=== PATIENT | female | born 1945 | race Caucasian/White ===

== ENCOUNTER 2017-09-18 10:01 | Outpatient (CLI) | payer MEDICARE, BC ==
[2017-09-18 15:10] LABS: #Eosinphils 0.2 thou/uL (0.0-0.7); #Lymphocytes 1.8 thou/uL (1.20-3.40); #Monocytes 0.6 thou/uL (0.11-0.59); #Neutrophils 4.5 thou/uL (1.40-6.50); %Basophils 0.6 % (0.0-1.0); %Eosinophils 2.6 % (0.0-10.0); %Lymphocytes 25.4 % (21.0-51.0); %Monocytes 7.9 % (0.0-10.0); %Neutrophils 63.5 % (42.0-75.0); Hemoglobin 12.7 g/dL (12.0-16.0); Mean Corpuscular HGB CONC 31.1 g/dL (32.0-36.0); Mean Corpuscular Hemoglobin 26.1 pg (27.0-31.0); Mean Corpuscular Volume 83.7 fl (81.0-99.0); Mean Platelet Volume 7.5 fL (7.4-10.4); Platelet Count 321 thou/uL (130-400); RBC Distribution Width 14.3 % (11.5-14.5); Red Blood Cell (RBC) Count 4.86 mill/uL (4.20-5.40); White Blood Cell (WBC) Count 7.2 thou/uL (4.8-10.8)
[2017-09-18 15:14] LABS: Prothrombin Time 12.9 SEC (12.0-14.7)
[2017-09-18 15:19] LABS: Bilirubin Negative (Negative); Blood, Urine Negative (Negative); Clarity CLEAR (Clear); Glucose, Urine (Dipstick) Negative (Negative); Leukocyte Negative (Negative); Nitrite Negative (Negative); Protein, Urine (Dipstick) Negative (Neg-Trace); Specific Gravity, Urine 1.014 (1.002-1.036); Urobilinogen 0.2 mg/dL (0.2-1.0); pH, Urine 7.5 (5.0-9.0)
[2017-09-18 15:25] LABS: Bacteria/HPF None Seen HPF (None Seen); Hyaline Casts/LPF 0-3 HYALINE CAST LPF (0-3 Hyaline); Pathc Cast-AUWi Flag 0.13 (0-2.49); RBC/HPF 0-3 HPF (0-3); Squamous Epithelial None Seen HPF (0-3); WBC/HPF None Seen HPF (0-3)
[2017-09-18 15:32] LABS: Anion Gap 14 mmol/L (10-20); BUN (Urea Nitrogen) 12 mg/dL (9.8-20.1); Calc. Creatinine Clearance 0 mL/min (70-130); Carbon Dioxide 31 mmol/L (23-31); Chloride 98 mmol/L (98-107); Estimated GFR-MDRD Greater than 90; Glucose 95 mg/dL (83-110); Potassium 4.1 mmol/L (3.5-5.1); Sodium 139 mmol/L (136-145)
--- NOTE | 2017-09-27 19:29 | EKG ---
Test Reason : Blood Pressure : / mmHG Vent. Rate : 080 BPM Atrial Rate : 080 BPM P-R Int : 168 ms QRS Dur : 102 ms QT Int : 394 ms P-R-T Axes : 063 039 077 degrees QTc Int : 454 ms Sinus rhythm with occasional Premature ventricular complexes Otherwise normal ECG When compared with ECG of 10-JUL-2015 18:57, Premature ventricular complexes are now Present Criteria for Inferior infarct are no longer Present Confirmed by GENE BOBO (2) on 09/27/2017 7:28:51 PM Referred By: IERO Confirmed By:GENE BOBO
== END 2017-09-18 10:02 | disposition home or self-care (01) ==
LOC: LABBT 10:01
PROVIDERS: ATTEND Orthopaedic Surgery
DX: Z01.818 Encounter for other preprocedural examination (principal); M17.12 Unilateral primary osteoarthritis, left knee
CPT/HCPCS: 80048; 81001; 85025; 85610; 86850; 86900; 86901; 87081; 93005; 93010

== ENCOUNTER 2017-09-24 06:53 | Inpatient (IN) | payer MEDICARE, BC ==
[2017-09-18 12:15] VITALS: BMI 30.6
[2017-09-24] MEDS ORDERED: Midazolam HCl 2 mg/2 ml Vial ONE (07:35)
[2017-09-24] MEDS ORDERED: Ropivacaine 0.2% HCl/PF 20 ML ONE (07:35)
[2017-09-24] MEDS ORDERED: Fentanyl 100 MCG/2 ML VIAL ONE ×4 (07:35→12:57)
[2017-09-24] MEDS ORDERED: Clindamycin/D5W 600 mg/50 ml Premix Bag ONE (07:36)
[2017-09-24] MEDS ORDERED: Tranexamic Acid 1,000 MG/100 ML BAG ONE ×2 (07:36→11:35)
[2017-09-24] MEDS ORDERED: Vancomycin HCl 1.5 GM in Sodium Chloride 0.9% 250 ML 300 ML IVPB SCH ×2 (07:45→20:00)
[2017-09-24] MEDS ORDERED: Zolpidem Tartrate 5 MG TAB PO PRN ×2 (08:41→09:57)
[2017-09-24] MEDS ORDERED: Ropivacaine HCl/PF 250 ML in Premix Bag 1 BAG NERVE BLCK SCH (08:41)
[2017-09-24] MEDS ORDERED: traMADol HCl 50 MG TAB PO PRN ×2 (08:41)
[2017-09-24] MEDS ORDERED: Ondansetron HCl/PF 4 MG/2 ML Vial IVP PRN ×3 (08:41→11:45)
[2017-09-24] MEDS ORDERED: HYDROcodone/Acetaminophen 5/325 mg Tablet PO PRN (08:41)
[2017-09-24] MEDS ORDERED: Promethazine HCl 25 MG/ML VIAL IM PRN ×3 (08:41→11:45)
[2017-09-24] MEDS ORDERED: Bupivacaine PF 0.5% 30 ML VIAL ONE (09:23)
[2017-09-24] MEDS ORDERED: Acetaminophen 325 MG TAB PO PRN (09:57)
[2017-09-24] MEDS ORDERED: diphenhydrAMINE 25 MG CAP PO PRN (09:57)
[2017-09-24] MEDS ORDERED: ACETAMINOPHEN WITH CODEINE PO PRN (09:59)
[2017-09-24] MEDS ORDERED: Azelastine 137 MCG/Spray 30 ML NS PRN (09:59)
[2017-09-24] MEDS ORDERED: Acetaminophen/Codeine 30-300mg Tablet PO PRN (09:59)
[2017-09-24] MEDS ORDERED: PROVENTIL INHALER 6.7 G (200 INHALATIONS) INH PRN (09:59)
[2017-09-24] MEDS ORDERED: Ondansetron ODT 8 MG TAB PO PRN (09:59)
[2017-09-24] MEDS ORDERED: Tranexamic Acid 1,000 MG in Sodium Chloride 0.9% 100 ML IVPB SCH (10:15)
--- NOTE | 2017-09-24 11:37 | OP ---
DATE OF PROCEDURE: 09/24/2017 PREOPERATIVE DIAGNOSIS: Left knee osteoarthritis. POSTOPERATIVE DIAGNOSIS: Left knee osteoarthritis. PROCEDURE PERFORMED: Left total knee replacement using [employer] pinless navigation. SURGEON: Basilio Leonard M.D. CROSSCUTTER ROLLED GLASS: Rigo Dietrich PA-C. BLOOD LOSS: Minimal. COMPLICATIONS: None. ANESTHESIA: The patient did have a general anesthetic. She also had preoperative blocks. IMPLANTS: To the left knee was a William Triathlon total knee system. The femur was a size 4 crucia te retaining femur. The tibial baseplate was a universal size 3. We used a 3 x 9 mm CSX3 tibial preeti ring and an asymmetric 29 x 9 X3 patella. DISPOSITION: She did go to the recovery room in stable condition. INDICATIONS: This is a 72-year-old female who has had many years of pain from left knee osteoarthros is and at this time she wants to have it her left knee replaced. PROCEDURE IN DETAIL: After all appropriate consent forms were explained and signed, the patient was t aken back to the Operating Room and at this time was given general anesthetic. Once the level of anes thesia was appropriate, a well-padded tourniquet was placed on the left leg and the leg was then prep ped and draped in standard surgical fashion. The limb was exsanguinated and tourniquet taken up to 30 0 mmHg. Midline incision was made with a 10 blade down through the skin and subcutaneous tissue. Bovi e electrocautery was used to coagulate any brisk venous bleeding. A new blade was used to make a medi al parapatellar arthrotomy. Small subperiosteal release was performed medially and excess fat pad was removed. The knee was flexed up to gain access to the femur. The femur was navigated and distal femo ral resection was made. Epicondylar access was used to align our sizing jig and this was pinned in pl so. We sized our femur to be a size 4, 4:1 cutting block was applied and pinned. Anterior and armoured corps officer ior chamfer cuts were then made. We navigated out our proximal tibia and made our proximal tibial res ection. Spreaders were used to remove any posterior osteophytes off the back of the femur as well as remaining meniscal tissue. A long alignment alina was then used to achieve correct rotation of our tibi al baseplate and a size 3 was chosen. This was pinned in place. We trialed the polyethylene and a 3 x 9 mm CSX3 polyethylene gave us full extension and good stability throughout range of motion. Two tow el clips and a saw were used to cut our patella. Three lug nuts were drilled and 29 x 9 X3 patella wa s trialed which sat nicely in the trochlear groove. We then drilled our femur and punched our tibia. All components were removed. The knee was thoroughly irrigated and dried. Cement was mixed into the c ement gun on the back table. Components were then placed. The knee was held out in full extension unt il the cement had dried. All excess bone cement was removed. Multiple #2 Vicryl stitches as well as a Quill was used to close our extensor mechanism. 0 Quill followed by a running Monoderm was then use d to close the skin. Surgicel glue was then used on the skin. Once this had dried, soft tissue dressi ng was applied to the limb, tourniquet was let down, and the toes pinked up nicely. The patient was then awakened and taken to the Recovery Room in stable condition. All counts were correct at the end of the case. The patient did receive preoperative IV antibiotics. The patient was injected with Expa rel for postoperative pain relief.
[2017-09-24] MEDS ORDERED: Promethazine HCl 25 MG/ML VIAL SLOW IVP PRN (11:45)
[2017-09-24] MEDS ORDERED: HYDROmorphone 2 MG/ML VIAL SLOW IVP PRN (11:45)
[2017-09-24] MEDS ORDERED: Sodium Chloride 0.9% 10 ML ONE (11:49)
[2017-09-24] MEDS ORDERED: Clindamycin/D5W 900 MG in Premix Bag 1 BAG IVPB SCH (14:00)
[2017-09-24] MEDS: Ipratropium Bromide 2.5 ml Neb NEB SCH ×2 (14:27→19:56)
[2017-09-24] MEDS: Sodium Chloride 0.9% 1,000 ML IV SCH ×2 (14:31→20:28)
[2017-09-24] MEDS: Fentanyl 100 MCG/2 ML VIAL IV PRN (15:20)
[2017-09-24] MEDS: Clindamycin/D5W 900 MG in Premix Bag 1 BAG IVPB SCH ×2 (15:21→21:23)
[2017-09-24] MEDS ORDERED: Ropivacaine 0.5% HCl/PF (150 MG/30 ML VIAL) ONE (16:40)
[2017-09-24] MEDS ORDERED: Propofol 200 MG/20 ML VIAL ONE (17:11)
[2017-09-24] MEDS ORDERED: ePHEDrine/0.9% NaCl/PF SYRINGE 50 mg/10 ml ONE (17:11)
[2017-09-24] MEDS ORDERED: Ondansetron HCl/PF 4 MG/2 ML Vial ONE (17:11)
[2017-09-24] MEDS ORDERED: Dexamethasone 20 MG/5 ML VIAL ONE (17:11)
[2017-09-24] MEDS ORDERED: Lidocaine 1% PF 5 ML VIAL ONE (17:11)
[2017-09-24] MEDS ORDERED: Mometasone/Formoterol 120 PUFF INHALER INH PRN (18:30)
[2017-09-24] MEDS: HYDROcodone/Acetaminophen 5/325 mg Tablet PO PRN ×2 (19:19→23:35)
[2017-09-24] MEDS ORDERED: Non-Formulary Item 1 EACH (Dexlansoprazole [Dexilant] 60 MG) PO SCH (21:00)
[2017-09-24] MEDS ORDERED: TIOTROPIUM BROMIDE INH SCH (21:00)
[2017-09-24] MEDS ORDERED: Docusate 100 MG CAP PO PRN (21:00)
[2017-09-24] MEDS: Ketorolac Tromethamine 30 MG/ML VIAL IVP PRN (21:19)
[2017-09-24] MEDS: Ferrous Gluconate 324 MG TAB PO SCH (21:31)
[2017-09-24] MEDS: Rosuvastatin 5 MG TAB PO SCH (21:31)
[2017-09-24] MEDS: Senokot S 8.6-50 MG TAB PO SCH (21:31)
[2017-09-24] MEDS: Terazosin HCl 5 MG CAP PO SCH (21:32)
[2017-09-24] MEDS: busPIRone HCl 10 MG TAB PO SCH (21:32)
[2017-09-24] MEDS: cycloSPORINE 0.05% Ophthalmic Droperette EA EYE SCH (21:33)
[2017-09-24] MEDS: Fluticasone Propionate Nasal Spray 16 gm Bottle NASAL SCH (21:33)
[2017-09-24] MEDS: Aspirin 325 MG TAB PO SCH (21:34)
[2017-09-25] MEDS: Ipratropium Bromide 2.5 ml Neb NEB SCH ×4 (00:42→18:55)
[2017-09-25] MEDS: Sodium Chloride 0.9% 1,000 ML IV SCH (05:02)
--- NOTE | 2017-09-25 06:13 | CON ---
DATE OF CONSULTATION: 09/24/2017 CHIEF COMPLAINT: Left total knee replacement. HISTORY OF PRESENT ILLNESS: The patient is a 72-year-old female with longstanding arthritis of the l eft knee that is finally being replaced by Dr. Leonard. We are consulted to help manage her multiple me dical problems of which there are many. Postop, she seems to be doing quite well, has complained of pain despite the fact she is sleeping. She is alert, responsive, and in no acute distress. PAST MEDICAL HISTORY: Significant for hemolytic angioedema, degenerative joint disease, hypertension , hyperlipidemia blepharitis, hiatal hernia, GERD, asthma, dyslipidemia, dry eyes, chronic pain. PAST SURGICAL HISTORY: Includes prior knee replacements, bilateral cataract surgery, spinal surgery, tonsillectomy, hysterectomy. ALLERGIES: She is allergic to KEON INHIBITORS, PENICILLIN, ROCEPHIN. MEDICATIONS ON ADMISSION: Amlodipine 5 mg a day, Zyrtec 5 mg daily, hydrocodone 5/325 daily, BuSpar 30 mg b.i.d., Celebrex 200 mg daily, Restasis 1 drop each eye b.i.d., Proventil HFA 2 puffs q.4 hours p.r.n. dyspnea, hydrochlorothiazide 50 mg q.a.m., Atrovent 2 puffs q.i.d., danazol 200 mg p.r.n. exa cerbation of HAE, Protonix 40 mg daily, Crestor 10 mg at bedtime, Hytrin 10 mg at bedtime. REVIEW OF SYSTEMS: HEENT: No headaches, no blurred vision. No congestion or drainage at this time. Chest: With good breath sounds. Denies shortness of breath currently, dyspnea or wheezing. Cardi ovascular: Denies chest pain or palpitations. Abdomen: Denies nausea, vomiting, diarrhea. Genitou rinary: Denies blood in urine or stool or dysuria. Musculoskeletal: Pain in the left knee, had a r ecent operation, otherwise other extremities are adequate at this time without swelling, erythema or heat intolerance. Skin: Without acute rashes or lesions. Neurologic: No trouble with mentation, h eadache or trouble thoughts. PHYSICAL EXAMINATION: VITAL SIGNS: On admission, blood pressure 143/84, pulse 90, respirations 18, temperature 98.2. GENERAL: This is an elderly female, alert, oriented, and cooperative. HEENT: Normocephalic and atraumatic. Pupils equal, round, and reactive to light. Extraocular muscl es are intact. TMs, nares, pharynx are clear. NECK: Supple, trachea midline, no mass, no bruits. CHEST: Clear to auscultation at the time of evaluation. BREAST: Deferred. BACK: Without lesions, negative CVAT. HEART: Regular rate and rhythm without murmur. ABDOMEN: Soft, nontender, without organomegaly. GENITOURINARY: Deferred. EXTREMITIES: Left lower extremity wrapped with clean KEON wrap and dressings with cold packs in place at the knee. Other extremities without clubbing, cyanosis, or edema. Normal range of motion presen t. SKIN: Without acute rashes or lesions. NEUROLOGIC: Cranial nerves are intact. Mental status is intact. Sensory exam is intact. Unable to test gait and cerebellar function at this time. LABORATORY DATA: No labs are pending at this time. ASSESSMENT: 1. Degenerative joint disease, left knee, status post left total knee replacement per Dr. Leonard. 2. Hemolytic angioedema, stable. 3. Asthma. 4. Hypertension, all stable. PLAN: We will monitor patient's medical course while she goes to the motions of the [facility] [place] and will probably need inpatient rehabilitation due the fact that she lives alone would not be able to care for herself all by herself, not having any other relatives to help her. We will follow her d aily with you. Thank you for the consultation.
[2017-09-25] MEDS: HYDROcodone/Acetaminophen 5/325 mg Tablet PO PRN ×3 (06:31→20:46)
[2017-09-25 06:58] LABS: Hemoglobin 9.8 g/dL (12.0-16.0); Mean Corpuscular HGB CONC 30.8 g/dL (32.0-36.0); Mean Corpuscular Hemoglobin 25.8 pg (27.0-31.0); Mean Corpuscular Volume 83.9 fl (81.0-99.0); Mean Platelet Volume 7.5 fL (7.4-10.4); Platelet Count 253 thou/uL (130-400); RBC Distribution Width 14.3 % (11.5-14.5); Red Blood Cell (RBC) Count 3.79 mill/uL (4.20-5.40); White Blood Cell (WBC) Count 10.5 thou/uL (4.8-10.8)
--- NOTE | 2017-09-25 08:31 | PRG ---
DATE OF SERVICE: 09/25/2017 SUBJECTIVE: The patient had a good night. She is sitting in the chair eating breakfast. Her pain i s under control. She says she had a little bit of wheezing in her lungs last night. PHYSICAL EXAMINATION: GENERAL: She is awake, alert, and oriented. VITAL SIGNS: Blood pressure 129/70, pulse 80, respiration rate 18. She is afebrile. NECK: Supple with no increased JVP or carotid bruit. Carotid had good upstroke with no thyromegaly. COR: Regular rate and rhythm. CHEST: Symmetrical. Clear to auscultation and percussion. ABDOMEN: Soft, nontender with normoactive bowel sounds. No bruit or organomegaly. EXTREMITIES: No edema. She had the left knee wrapped with ice on it. LABORATORY DATA: Today showed H&H 9.8 and 31.8, her platelet count is 253. ASSESSMENT: 1. Status post left knee replacement. 2. General anxiety disorder. 3. History of asthma. 4. Hypertension. PLAN: The patient will continue the same current medication regime. The patient asked whether she w anted to rehab as she lives alone, so once Ortho says it is okay, I would definitely look at sending her to rehab. The patient verbalized understanding and all questions answered to her satisfaction.
[2017-09-25] MEDS: Multivitamin W/ Minerals 1 TAB PO SCH (08:41)
[2017-09-25] MEDS: Senokot S 8.6-50 MG TAB PO SCH ×2 (08:41→20:45)
[2017-09-25] MEDS: Amlodipine 5 MG TAB PO SCH (08:41)
[2017-09-25] MEDS: Potassium Chloride 10 MEQ TAB PO SCH (08:42)
[2017-09-25] MEDS: Ferrous Gluconate 324 MG TAB PO SCH ×2 (08:42→20:45)
[2017-09-25] MEDS: Hydrochlorothiazide 25 MG TAB PO SCH (08:42)
[2017-09-25] MEDS: Venlafaxine HCl XR 150 MG CAP PO SCH (08:42)
[2017-09-25] MEDS: Aspirin 325 MG TAB PO SCH ×2 (08:42→20:45)
[2017-09-25] MEDS: busPIRone HCl 10 MG TAB PO SCH ×2 (08:43→20:46)
[2017-09-25] MEDS: CeleCOXIB 100 MG CAP PO SCH (08:44)
[2017-09-25] MEDS: Fluticasone Propionate Nasal Spray 16 gm Bottle NASAL SCH ×2 (08:44→20:44)
[2017-09-25] MEDS: Ketorolac Tromethamine 30 MG/ML VIAL IVP PRN ×3 (08:44→22:55)
[2017-09-25] MEDS: Multivit, Therapeutic 1 TAB PO SCH (10:44)
[2017-09-25] MEDS: cycloSPORINE 0.05% Ophthalmic Droperette EA EYE SCH ×2 (12:11→20:44)
[2017-09-25] MEDS: Fentanyl 100 MCG/2 ML VIAL IV PRN (13:54)
[2017-09-25] MEDS: Terazosin HCl 5 MG CAP PO SCH (20:45)
[2017-09-25] MEDS: Rosuvastatin 5 MG TAB PO SCH (20:51)
[2017-09-26] MEDS: Ipratropium Bromide 2.5 ml Neb NEB SCH ×4 (00:30→19:28)
[2017-09-26] MEDS: Sodium Chloride 0.9% 1,000 ML IV SCH ×4 (03:00→20:54)
[2017-09-26 05:42] LABS: Hemoglobin 10.2 g/dL (12.0-16.0); Mean Corpuscular Volume 83.8 fl (81.0-99.0); Mean Platelet Volume 7.6 fL (7.4-10.4); Platelet Count 258 thou/uL (130-400); RBC Distribution Width 14.4 % (11.5-14.5); Red Blood Cell (RBC) Count 3.93 mill/uL (4.20-5.40)
[2017-09-26] MEDS: Ketorolac Tromethamine 30 MG/ML VIAL IVP PRN ×2 (06:06→21:15)
[2017-09-26] MEDS: CeleCOXIB 100 MG CAP PO SCH (08:48)
[2017-09-26] MEDS: busPIRone HCl 10 MG TAB PO SCH ×2 (08:48→20:00)
[2017-09-26] MEDS: Aspirin 325 MG TAB PO SCH ×2 (08:48→19:59)
[2017-09-26] MEDS: Multivitamin W/ Minerals 1 TAB PO SCH (08:49)
[2017-09-26] MEDS: Hydrochlorothiazide 25 MG TAB PO SCH (08:49)
[2017-09-26] MEDS: Senokot S 8.6-50 MG TAB PO SCH ×2 (08:49→20:00)
[2017-09-26] MEDS: Ferrous Gluconate 324 MG TAB PO SCH ×2 (08:49→19:59)
[2017-09-26] MEDS: Venlafaxine HCl XR 150 MG CAP PO SCH (08:49)
[2017-09-26] MEDS: Potassium Chloride 10 MEQ TAB PO SCH (08:49)
[2017-09-26] MEDS: Amlodipine 5 MG TAB PO SCH (08:50)
[2017-09-26] MEDS: cycloSPORINE 0.05% Ophthalmic Droperette EA EYE SCH ×2 (08:51→20:01)
[2017-09-26] MEDS: HYDROcodone/Acetaminophen 5/325 mg Tablet PO PRN ×4 (09:01→23:51)
[2017-09-26] MEDS: Multivit, Therapeutic 1 TAB PO SCH (10:12)
[2017-09-26] MEDS: Fluticasone Propionate Nasal Spray 16 gm Bottle NASAL SCH ×2 (10:12→20:01)
[2017-09-26] MEDS: Rosuvastatin 5 MG TAB PO SCH (20:00)
[2017-09-26] MEDS: Terazosin HCl 5 MG CAP PO SCH (20:00)
[2017-09-27] MEDS: Ipratropium Bromide 2.5 ml Neb NEB SCH ×4 (01:07→19:56)
[2017-09-27] MEDS: Ketorolac Tromethamine 30 MG/ML VIAL IVP PRN ×2 (03:15→10:53)
[2017-09-27 05:48] LABS: Hemoglobin 9.3 g/dL (12.0-16.0); Mean Corpuscular HGB CONC 30.7 g/dL (32.0-36.0); Mean Corpuscular Hemoglobin 25.5 pg (27.0-31.0); Mean Corpuscular Volume 83.2 fl (81.0-99.0); Mean Platelet Volume 7.8 fL (7.4-10.4); Platelet Count 265 thou/uL (130-400); RBC Distribution Width 14.4 % (11.5-14.5); Red Blood Cell (RBC) Count 3.65 mill/uL (4.20-5.40); White Blood Cell (WBC) Count 7.3 thou/uL (4.8-10.8)
[2017-09-27] MEDS: Sodium Chloride 0.9% 1,000 ML IV SCH ×2 (07:34→17:12)
--- NOTE | 2017-09-27 08:05 | PRG ---
DATE OF SERVICE: 09/27/2017 SUBJECTIVE: The patient had a good night. She does have a productive cough. She is still on oxygen . Her O2 sats are 92%. She is sitting in bed, eating breakfast. She is waiting to get approved at rehabilitation. PHYSICAL EXAMINATION: GENERAL: On evaluation, she is awake, alert, and oriented. VITAL SIGNS: Blood pressure 123/77, pulse 73, respirations 18, she is afebrile. NECK: Supple with no increased JVP or carotid bruit. Carotid had good upstroke with no thyromegaly. COR: Regular rate and rhythm. CHEST: Symmetrical. Clear to auscultation and percussion in upper lobes. ABDOMEN: Soft, nontender with normoactive bowel sounds. No bruit or organomegaly. EXTREMITIES: No edema. She has the dressing on her left knee. She had palpable pedal pulses. SKIN: There is no evidence of ulceration, lesion, or rash. NEUROLOGIC: She is awake, alert, and oriented to person, place, and time. LABORATORY DATA: Her CBC showed H&H of 9.3 and 30.4. ASSESSMENT: 1. Status post left knee replacement. 2. General anxiety disorder. 3. Multiple medical problems. PLAN: The patient is waiting to get approved hopefully at [facility]. Once the patient is approved , it is okay from our standpoint to send the patient to rehab. Discharge medications are already pre pared in the chart. The patient verbalized understanding and all questions answered to satisfaction. This is JASON Manjarrez dictating for Dr. Luis Escobar.
[2017-09-27] MEDS: Venlafaxine HCl XR 150 MG CAP PO SCH (08:48)
[2017-09-27] MEDS: Aspirin 325 MG TAB PO SCH ×2 (08:48→20:23)
[2017-09-27] MEDS: CeleCOXIB 100 MG CAP PO SCH (08:48)
[2017-09-27] MEDS: busPIRone HCl 10 MG TAB PO SCH ×2 (08:48→20:23)
[2017-09-27] MEDS: Senokot S 8.6-50 MG TAB PO SCH ×2 (08:49→20:23)
[2017-09-27] MEDS: Amlodipine 5 MG TAB PO SCH (08:49)
[2017-09-27] MEDS: Ferrous Gluconate 324 MG TAB PO SCH ×2 (08:49→20:24)
[2017-09-27] MEDS: Multivitamin W/ Minerals 1 TAB PO SCH (08:49)
[2017-09-27] MEDS: HYDROcodone/Acetaminophen 5/325 mg Tablet PO PRN ×3 (08:49→22:17)
[2017-09-27] MEDS: Hydrochlorothiazide 25 MG TAB PO SCH (08:49)
[2017-09-27] MEDS: Multivit, Therapeutic 1 TAB PO SCH (08:50)
[2017-09-27] MEDS: Potassium Chloride 10 MEQ TAB PO SCH (08:50)
[2017-09-27] MEDS: Fluticasone Propionate Nasal Spray 16 gm Bottle NASAL SCH ×2 (08:51→20:24)
--- NOTE | 2017-09-27 12:14 | PRG ---
DATE OF SERVICE: 09/27/2017 SUBJECTIVE: Ms. Landrum is now postoperative day #3 from a left total knee arthroplasty. She is doin g relatively well. Placement is pending for inpatient rehabilitation versus skilled. OBJECTIVE: VITAL SIGNS: Stable, temperature 98.8, pulse 81, respiratory rate 12, blood pressure 146/83. GENERA L: She is alert and oriented to person, place, time, and situation. She is ambulating 120 feet. To lerating a regular diet, and voiding without difficulty. EXTREMITIES: Her incision is clean and closed and she is neurovascularly intact in the involved extr emity. IMPRESSION: A 72-year-old white female postop day #3, left total knee arthroplasty, doing well. PLAN: Continue current management and plan for a transfer to rehabilitation when approved.
[2017-09-27] MEDS: cycloSPORINE 0.05% Ophthalmic Droperette EA EYE SCH ×2 (13:50→20:24)
[2017-09-27] MEDS: traMADol HCl 50 MG TAB PO PRN (19:42)
[2017-09-27] MEDS: Rosuvastatin 5 MG TAB PO SCH (20:23)
[2017-09-27] MEDS: Terazosin HCl 5 MG CAP PO SCH (20:23)
[2017-09-27] MEDS ORDERED: Calcium Carbonate 500 MG ChewTAB PO PRN (22:25)
[2017-09-28] MEDS: Ipratropium Bromide 2.5 ml Neb NEB SCH ×2 (00:32→07:56)
[2017-09-28] MEDS: Sodium Chloride 0.9% 1,000 ML IV SCH (03:28)
[2017-09-28] MEDS: HYDROcodone/Acetaminophen 5/325 mg Tablet PO PRN ×2 (03:53→09:02)
[2017-09-28 04:21] LABS: Hemoglobin 9.8 g/dL (12.0-16.0); Mean Corpuscular HGB CONC 31.3 g/dL (32.0-36.0); Mean Corpuscular Hemoglobin 26.4 pg (27.0-31.0); Mean Corpuscular Volume 84.2 fl (81.0-99.0); Mean Platelet Volume 7.8 fL (7.4-10.4); Platelet Count 333 thou/uL (130-400); RBC Distribution Width 14.4 % (11.5-14.5); White Blood Cell (WBC) Count 7.2 thou/uL (4.8-10.8)
[2017-09-28] MEDS: Senokot S 8.6-50 MG TAB PO SCH (08:52)
[2017-09-28] MEDS: Aspirin 325 MG TAB PO SCH (08:53)
[2017-09-28] MEDS: Multivit, Therapeutic 1 TAB PO SCH (08:53)
[2017-09-28] MEDS: busPIRone HCl 10 MG TAB PO SCH (08:54)
[2017-09-28] MEDS: CeleCOXIB 100 MG CAP PO SCH (08:54)
[2017-09-28] MEDS: Hydrochlorothiazide 25 MG TAB PO SCH (08:54)
[2017-09-28] MEDS: Venlafaxine HCl XR 150 MG CAP PO SCH (08:54)
[2017-09-28] MEDS: Multivitamin W/ Minerals 1 TAB PO SCH (08:55)
[2017-09-28] MEDS: Amlodipine 5 MG TAB PO SCH (08:55)
[2017-09-28] MEDS: Ferrous Gluconate 324 MG TAB PO SCH (08:55)
[2017-09-28] MEDS: Potassium Chloride 10 MEQ TAB PO SCH (08:55)
[2017-09-28] MEDS: cycloSPORINE 0.05% Ophthalmic Droperette EA EYE SCH (09:03)
[2017-09-28] MEDS: Fluticasone Propionate Nasal Spray 16 gm Bottle NASAL SCH (09:04)
[2017-09-28] MEDS: traMADol HCl 50 MG TAB PO PRN (11:51)
[2017-09-28 11:57] VITALS: BP 138/88; TEMP 97.8
== END 2017-09-28 13:30 | disposition home health service (06) | DRG 470 ==
LOC: SDC 06:53 → SJJU 09:57 → EDSTATUS 13:00
PROVIDERS: ADMIT Orthopaedic Surgery; ATTEND Orthopaedic Surgery
PROC: 0SRD0J9 Replacement of Left Knee Joint with Synthetic Substitute, Cemented, Open Approach (ICD-10-PCS; principal; 2017-09-24)
PROC: 8E0YXBZ Computer Assisted Procedure of Lower Extremity (ICD-10-PCS; 2017-09-24)
PROC: 3E0T3BZ Introduction of Anesthetic Agent into Peripheral Nerves and Plexi, Percutaneous Approach (ICD-10-PCS; 2017-09-24)
PROC: 3E0T3BZ Introduction of Anesthetic Agent into Peripheral Nerves and Plexi, Percutaneous Approach (ICD-10-PCS; 2017-09-24)
DX: M17.12 Unilateral primary osteoarthritis, left knee (principal); D84.1 Defects in the complement system; G62.9 Polyneuropathy, unspecified; E78.5 Hyperlipidemia, unspecified; F41.1 Generalized anxiety disorder; J45.909 Unspecified asthma, uncomplicated; I10 Essential (primary) hypertension; Z96.651 Presence of right artificial knee joint
CPT/HCPCS: 36415; 85027; A4216; C1713; C1776; G8978-GP-CL; G8979-GP-CJ; G8987-GO-CK; G8988-GO-CI; J1100; J1885; J2001; J2250; J2405; J2704; J2795; J3010; J3370; J3490; J7050; J7644; S0020

== ENCOUNTER 2017-10-04 15:22 | Outpatient (CLI) | payer MEDICARE, BC ==
--- NOTE | 2017-10-04 16:31 | ULT ---
ULTRASOUND WITH DOPPLER DUPLEX VENOUS LOWER EXTREMITY LEFT 10/04/17 CPT: 08577 ICD-10-PCS: B54D HISTORY: Pain and edema of left lower extremity. TECHNIQUE: Color flow Doppler, spectral waveform analysis of pulsed Doppler, and ruiz-scale imaging with jyotsna dey and augmentation, were used to evaluate the left common femoral, femoral, popliteal, posterior t ibial, and superficial femoral, veins; and the proximal portions of the profunda femoral and greater saphenous, veins. FINDINGS: Appropriate compressibility and flow within the imaged deep vein system of the left lower extremity. Incidental note of left inguinal region lymph nodes. IMPRESSION: There is no evidence of DVT of the imaged left lower extremity. POS: SHERON
== END 2017-10-04 15:23 | disposition home or self-care (01) ==
LOC: ULT 15:22
PROVIDERS: ATTEND Orthopaedic Surgery
DX: M79.89 Other specified soft tissue disorders (principal); M79.662 Pain in left lower leg; Z96.652 Presence of left artificial knee joint

== ENCOUNTER 2017-11-14 13:02 | Outpatient (CLI) | payer MEDICARE, BC ==
--- NOTE | 2017-11-15 10:13 | PFT ---
PATIENT HISTORY: HEIGHT: 65 IN WEIGHT:180 SMOKER: NO HOW LONG: PACKS PER DAY PRODUCTIVE COUGH: LUNG DISEASE: PHYSICIAN INTERPRETATION FINAL REPORT: Track Surfacing Machine Operator comments: patient had good effort and cooperation PFT data: FVC 2.33 (81%), FEV1 2.01 (99%), FEV1/FVC 0.86. Total expiratory time 6.76 seconds. TLC 3.96 (81%), RV 1.46 (72%). Diffusion 31.13 (176%). The FEV1 and FVC fall within the normal limits. The ratio is also normal. The total lung capacity is at the lower limits of normal. The residual volume is mildly impaired. Diffusion capacity is elevated that this data may be inaccurate Interpret with caution. IMPRESSION: Overall, these pulmonary function studies are including spirometry and lung volumes are normal, but early restrictive process cannot be excluded. No priors for comparison. Diffusion are gas exchanges elevated, possibly as an effect of artifact. Track Surfacing Machine Operator: ENID Rodeo Performer: ENID ZEPEDA
== END 2017-11-14 13:03 | disposition home or self-care (01) ==
LOC: CP 13:02
PROVIDERS: ATTEND Internal Medicine Critical Care Medicine
DX: J84.10 Pulmonary fibrosis, unspecified (principal)
CPT/HCPCS: 94010; 94727; 94729

== ENCOUNTER 2018-01-28 09:27 | Outpatient (CLI) | payer MEDICARE, BC ==
--- NOTE | 2018-01-28 13:18 | RAD ---
DOUBLE CONTRAST ESOPHAGRAM: Date: 01/28/18 INDICATION: History of gastroesophageal reflux, hiatal hernia, and cough. TECHNIQUE: Thin barium, thick barium, and effervescent crystals utilized for double contrast esophagram. Total f luoroscopic time is 1.7 minutes. Total exposure was 262.95 mGy*cm^2. FINDINGS: No intraluminal mass or stricture is identified. The esophageal contour is normal appearing. There wa s a small hiatal hernia demonstrated when the patient was placed in the right lateral decubitus posit ion. There are tertiary contractions of the esophagus that limited propulsion of the contrast bolus in a right lateral decubitus position and to some extent in an upright position. No gastroesophageal reflux was elicited during the examination. No gross mucosal abnormality is evident within limitation s of exam. The patient had slight difficulty in holding still during the examination and motion artif act limited the image resolution. IMPRESSION: 1. Small hiatal hernia. 2. Tertiary contractions of the mid to distal esophagus can be seen with presbyesophagus or reflux e sophagitis. 3. No definite intraluminal mass or stricture is evident. POS: OTIS
== END 2018-01-28 09:28 | disposition home or self-care (01) ==
LOC: RAD 09:27
PROVIDERS: ATTEND Internal Medicine Gastroenterology
DX: K21.9 Gastro-esophageal reflux disease without esophagitis (principal); K44.9 Diaphragmatic hernia without obstruction or gangrene; K22.8 Other specified diseases of esophagus; R05 Cough
CPT/HCPCS: 74220

== ENCOUNTER 2018-03-19 14:01 | Outpatient (CLI) | payer MEDICARE, BC | END 2018-03-19 14:02 | disposition home or self-care (01) | LOC: BICMAMMO 14:01 | PROVIDERS: ATTEND Specialist | DX: Z12.31 Encounter for screening mammogram for malignant neoplasm of breast (principal); Z80.3 Family history of malignant neoplasm of breast | CPT/HCPCS: 77063; 77067 ==

== ENCOUNTER 2018-05-27 13:23 | Outpatient (CLI) | payer MEDICARE, BC | END 2018-05-27 13:24 | disposition home or self-care (01) | LOC: BICCT 13:23 | PROVIDERS: ATTEND Specialist | DX: M51.16 Intervertebral disc disorders with radiculopathy, lumbar region (principal); M47.26 Other spondylosis with radiculopathy, lumbar region; Z98.890 Other specified postprocedural states | CPT/HCPCS: 72131 ==

== ENCOUNTER 2018-10-07 13:39 | Outpatient (CLI) | payer MEDICARE, BC ==
--- NOTE | 2018-10-07 16:33 | RAD ---
FOUR VIEWS CERVICAL SPINE: HISTORY: Disk disorder with radiculopathy. FINDINGS: AP, lateral, flexion, and extension views of the cervical spine obtained. Images demonstrate disk space height loss with anterior and posterior osteophytes at C3-4, C4-5, C5-6 , and C6-7. Findings compatible with changes of spondylosis. IMPRESSION: Mid cervical changes of spondylosis involving multiple cervical levels. POS: OTIS
--- NOTE | 2018-10-07 17:33 | CT ---
NONCONTRAST CT CERVICAL SPINE: 10/07/2018 HISTORY: Radiculopathy. Neck pain for many years. Tingling and numbness down right arm. History of back sti mulator. FINDINGS: There is slight anterolisthesis of C2 on C3 with trace anterolisthesis of C4 on C5, likely related to prominent facet degenerative changes. There is straightening of the normal cervical lordotic curvat ure. Multilevel degenerative change is seen throughout the cervical spine, with narrowing of the int ervertebral disk spaces and endplate degenerative changes at multiple levels. C2-C3: There are prominent facet hypertrophic changes without significant encroachment on the neural foramina. The central spinal canal appears patent at this level. C3-C4: There is prominent right-sided facet hypertrophic changes and uncinate process hypertrophy, r esulting in moderate right-sided neural foraminal narrowing. There is mild left-sided neural foramin al narrowing. C4-C5: There is disk osteophyte complex and facet hypertrophic changes. Findings result in moderate to severe bilateral neural foraminal narrowing with mild effacement of the ventral subarachnoid spac e. C5-C6: There are prominent endplate degenerative changes and endplate sclerosis. There is disk oste ophyte complex noted. There is mild left and moderate to severe right-sided neural foraminal narrowi ng, related to bony encroachment. C6-C7: There is no significant bony encroachment on the central spinal canal or neural foramina. C7-T1: There is no significant bony encroachment on the central spinal canal or neural foramina. The prevertebral soft tissues are within normal limits. Vascular calcification is seen in the carotid arteries. The visualized medial upper lung zones are clear, aside from minimal pleural and parenchymal scarring at each lung apex. IMPRESSION: Multilevel degenerative changes seen throughout the cervical spine. There is slight anterolisthesis of C2 on C3 with trace anterolisthesis of C4 on C5, attributable to prominent facet degenerative rosa ges. There is bony encroachment on the neural foramina at several levels. POS: OTIS
== END 2018-10-07 13:40 | disposition home or self-care (01) ==
LOC: BICCT 13:39
PROVIDERS: ATTEND Specialist
DX: M50.120 Mid-cervical disc disorder, unspecified level (principal); M48.02 Spinal stenosis, cervical region; M43.12 Spondylolisthesis, cervical region; M47.22 Other spondylosis with radiculopathy, cervical region
CPT/HCPCS: 72050; 72125

== ENCOUNTER 2019-01-09 14:04 | Emergency (ER) | payer MEDICARE, BC ==
[2019-01-09 14:44] LABS: #Basophils 0.1 thou/uL (0.0-0.2); #Eosinphils 0.3 thou/uL (0.0-0.7); #Lymphocytes 1.8 thou/uL (1.20-3.40); #Monocytes 0.6 thou/uL (0.11-0.59); #Neutrophils 4.5 thou/uL (1.40-6.50); %Basophils 0.7 % (0.0-1.0); %Eosinophils 4.5 % (0.0-10.0); %Lymphocytes 24.3 % (21.0-51.0); %Monocytes 8.2 % (0.0-10.0); %Neutrophils 62.2 % (42.0-75.0); Hemoglobin 13.5 g/dL (12.0-16.0); Mean Corpuscular Hemoglobin 27.7 pg (27.0-31.0); Mean Corpuscular Volume 86.5 fL (78.0-98.0); Mean Platelet Volume 7.6 fL (7.4-10.4); Platelet Count 241 thou/uL (130-400); RBC Distribution Width 13.2 % (11.5-14.5); Red Blood Cell (RBC) Count 4.89 mill/uL (4.20-5.40); White Blood Cell (WBC) Count 7.3 thou/uL (4.8-10.8)
--- NOTE | 2019-01-09 14:44 | RAD ---
EXAM: Chest PA and lateral: HISTORY: Shortness of breath COMPARISON: 08/20/2013 FINDINGS: Heart: Within normal limits. Aorta: Ectatic and slightly prominent. Pulmonary vessels: Upper normal Costophrenic angles: Costophrenic angles are clear. Lungs: No consolidation or masses. Pneumothorax: No pneumothorax Osseous structures: No osseous abnormalities IMPRESSION: No acute cardiopulmonary process.
[2019-01-09 15:03] LABS: ALT (SGPT) 11 U/L (8-55); AST (SGOT) 22 U/L (5-34); Alkaline Phosphatase 95 U/L (40-150); Anion Gap 13 mmol/L (10-20); BUN (Urea Nitrogen) 7 mg/dL (9.8-20.1); Bilirubin, Total 0.3 mg/dL (0.2-1.2); Calc. Creatinine Clearance 0 mL/min (70-130); Calcium 9.6 mg/dL (7.8-10.44); Carbon Dioxide 30 mmol/L (23-31); Chloride 101 mmol/L (98-107); Estimated GFR-MDRD Greater than 90; Globulin 2.9 g/dL (2.4-3.5); Glucose 81 mg/dL (83-110); Potassium 4.2 mmol/L (3.5-5.1); Protein, Total 6.9 g/dL (6.0-8.3); Sodium 140 mmol/L (136-145)
[2019-01-09] MEDS ORDERED: Albuterol Sulfate 2.5 mg/3 ml Neb ONE (18:54)
[2019-01-09 19:00] LABS: Actual Bicarbonate (HCO3a) 29.8 mEq/L (22-28); Analyzer IN Cardio ER; Base Excess (BEa) 4.2 mEq/L (-2.0 to +3.0); Calcium, Ionized 1.19 mmol/L (1.12-1.30); Hemoglobin (Hb) 15.3 g/dL (12.0-16.0); Potassium - ABG Lab 3.08 mmol/L (3.70-5.30); pH, Arterial 7.41 (7.35-7.45)
[2019-01-09 19:12] LABS: O2 Tension (PaO2) 25.8 mmHg (> 70.0)
[2019-01-09 19:13] LABS: Puncture Site L WRIST
[2019-01-09] MEDS ORDERED: Dexamethasone 10 MG/ML VIAL ONE (19:22)
[2019-01-09] MEDS ORDERED: Azithromycin 500 MG VIAL ONE (19:22)
[2019-01-09] MEDS ORDERED: Magnesium 2 GM/50 ML BAG (IN WATER) ONE (19:54)
== END 2019-01-09 21:30 | disposition home or self-care (01) ==
LOC: ERS 14:04
DX: J20.9 Acute bronchitis, unspecified (principal); B37.0 Candidal stomatitis; K21.9 Gastro-esophageal reflux disease without esophagitis; J45.909 Unspecified asthma, uncomplicated; F41.9 Anxiety disorder, unspecified; Z79.899 Other long term (current) drug therapy
CPT/HCPCS: 36415; 71046; 80053; 82805; 84484; 85025; 93005; 94760; 96365; 96375; J0456; J1100; J3475; J7611; J7620

== ENCOUNTER 2019-02-07 06:50 | Day surgery (SDC) | payer MEDICARE, BC ==
[2019-02-07] MEDS ORDERED: cloNIDine 0.1 MG TAB ONE ×2 (08:03→08:35)
[2019-02-07 10:18] VITALS: BP 198/119; TEMP 98.4
--- NOTE | 2019-02-07 11:05 | CT ---
CT thoracic spine with contrast: ([facility] thoracic myelogram) DATE: 02/07/2019 HISTORY: 73-year-old female with thoracic spinal stenosis and radicular pain of thoracic region COMPARISON: 12/11/2016 FINDINGS: There has been interval insertion of dorsal column stimulator leads which enter the posterior aspect of the spinal canal at approximately T8-9, with electrodes superior edges that reaches the lower T7 level, centered to the left of midline. Multiple midline laminectomies have been performed to perform this procedure, from T7-8 to T10-11. There is streak artifact emanating from the distal electrodes, obscuring immediate surroundings, including its relationship to the spinal cord. The left side of the electrodes is in very close proximity to the dorsal surface of the spinal cord no significant anterior displacement of the spinal cord. Again noted are the multilevel degenerative disc changes of varying degrees, predominantly mild at up per thoracic spine and mid thoracic spine, and moderate at T7-8, T8-9, T9-10, and T10-11. Degenerative disc disease is severe at T12-L1. Multiple small and tiny disc protrusions encroach upon the anterior aspect of the spinal canal at tatyana ost all levels. At T7-8 there is a 5 x 5 x 10 mm left paracentral focal disc-osteophyte complex that abuts the left ventral surface of the spinal cord without displacing the spinal cord. This has n ot changed. There are nonacute bilateral nondisplaced L1 compression fractures. There are bilateral accessory rib s at L1. No compression fracture. No severe neural foraminal stenosis identified at any level. IMPRESSION: 1.) Bilateral nondisplaced, nonacute L1 pedicle fractures 2.) Interval placement of spinal cord dorsal column stimulator leads via multilevel laminectomy in lo wer to mid thoracic spine. 3) no high-grade central spinal canal stenosis. 4) thoracic spondylosis with multilevel high-grade degenerative disc disease in the lower thoracic sp ine.
--- NOTE | 2019-02-07 11:15 | CT ---
CT lumbar spine with contrast: (CT lumbar myelogram) DATE: 02/07/2019 HISTORY: 73-year-old female with intervertebral disc disorder with radiculopathy of lumbar region, postlaminec sierra syndrome, not elsewhere classified COMPARISON: 12/11/2016 FINDINGS: Counting levels from the thoracic spine CT, there are a total of 13 rib bearing vertebrae. To be cons istent with the thoracic spine CT report, the lowest level with bilateral ribs will be designated as L1 rather than T12. This makes the last lumbar-type vertebra L6. There are chronic, nonunited bilateral L1 pedicle fractures. Conus medullaris terminates at L2-3. Spi nal canal and thecal sac are generous throughout all levels. Grade 2 anterolisthesis of L6 on S1 fixated with bilateral pedicle screws at L5, L6, and S1. No evidence of hardware loosening. Wide lami nectomy defects at L5-6 and L6-S1. No evidence of chronic arachnoiditis. Degenerative disc disease: Severe at T12-L1 and L6-S1. Moderate at L3-4 and L4-5. Mild at other level s. No central spinal canal stenosis at any level. No high-grade neural foraminal stenosis at any level. No interval change. IMPRESSION: 1. 13 rib-bearing vertebrae. Last rib-bearing vertebra is designated as L1, and last lumbar-type vert ebra is designated as L6. 2. Chronic, nondisplaced and nonunited bilateral L1 pedicle fractures. 3. Laminectomy and posterior lumbar fusion with pedicle screws. 4. Grade 2 spondylolisthesis at L6-S1. 5. Lumbar spondylosis with multilevel high-grade degenerative disc disease, worst at T12-L1, followed by L6-S1. 6. No central stenosis or high-grade neural foraminal stenosis. 7. No interval change.
[2019-02-07] MEDS ORDERED: Iopamidol-M 300 61% 15 ML VIAL ONE (15:39)
--- NOTE | 2019-02-08 10:01 | RAD ---
MYELOGRAM LUMBAR AND THORACIC: Date: 02/07/19 HISTORY: 73-year-old female with thoracic spinal stenosis, radicular pain of thoracic region, intervertebral disc disorder with radiculopathy of lumbar region, and post laminectomy syndrome, not elsewhere class ified. TECHNIQUE: Signed, informed consent obtained. Hand Lens Polisher radiographs of thoracic spine and lumbar spine obtained. Pat ient placed prone on fluoroscopy table. Skin of lower back prepared and draped in usual sterile fashi on. 25 gauge needle used to apply buffered lidocaine. 22 gauge spinal needle advanced under brief, in termittent fluoroscopy, through the laminectomy defect at midline at the L4-5 level. After removal of 10 mL of clear CSF, a total of 9 mL of Isovue-M 300 was injected intrathecally. Needle was removed. Fluoroscopy table was tilted, allowing intrathecal contrast material to flow into the thoracic spine. The patient tolerated the procedure well. No complications. The patient was taken to CT. FINDINGS: Hand Lens Polisher view radiograph demonstrates dorsal column stimulator with leads at thoracic spine. Laminectomy defects and pedicle screws at lower lumbar spine and upper sacrum. Spondylolisthesis at lumbosacral junction. Post injection image demonstrates contrast material within a wide caliber lower lumbar thec al sac. IMPRESSION: 1. Successful thoracic and lumbar myelogram. See separate report of CT myelograms of the thoracic sp ine and lumbar spine. 2. Laminectomy and posterior lumbar fusion hardware at lower lumbar spine and lumbosacral junction. 3. Spondylolisthesis at lumbosacral junction. 4. Lumbar spondylosis. 5. Spinal cord stimulator at thoracic spine. POS: TPC
== END 2019-02-07 11:35 | disposition home or self-care (01) ==
LOC: RAD 06:50
PROVIDERS: ATTEND Specialist
PROC: B01B1ZZ Fluoroscopy of Spinal Cord using Low Osmolar Contrast (ICD-10-PCS; principal; 2019-02-07)
DX: M51.14 Intervertebral disc disorders with radiculopathy, thoracic region (principal); M48.04 Spinal stenosis, thoracic region; M51.16 Intervertebral disc disorders with radiculopathy, lumbar region; M47.26 Other spondylosis with radiculopathy, lumbar region; S32.010A Wedge compression fracture of first lumbar vertebra, initial encounter for closed fracture; M43.16 Spondylolisthesis, lumbar region; M96.1 Postlaminectomy syndrome, not elsewhere classified; Z88.1 Allergy status to other antibiotic agents; Z88.0 Allergy status to penicillin; Z88.8 Allergy status to other drugs, medicaments and biological substances; Z79.82 Long term (current) use of aspirin; Z79.899 Other long term (current) drug therapy
CPT/HCPCS: 62305; 72129; 72132; Q9967

== ENCOUNTER 2019-02-14 10:06 | Outpatient (CLI) | payer MEDICARE, BC ==
--- NOTE | 2019-02-14 10:29 | RAD ---
Exam: LUMBAR SPINE 3 VIEWS: HISTORY: Lumbar spondylosis. L1 fracture. COMPARISON: None FINDINGS: AP, lateral neutral, lateral flexion, and lateral extension views were obtained with the patient in w eightbearing position. Five lumbar-type vertebral bodies. Slight rightward curvature the lumbar spine. Bilateral transpedicu lar screws at L4, L5, and S1. No perihardware lucency. Generator projects over the right hemipelvis with leads in a cephalad direction. Laminectomy at L5. Posterior bone graft material from L4 through L5. Neutral position: L4-L5 has 2.5 mm of anterolisthesis and L5-S1 has 9.4 mm of anterolisthesis. Flexion: L4-L5 has 1.6 mm anterolisthesis at L5-S1 has 8.3 mm of anterolisthesis. Extension: Spondylolisthesis of L4 and L5 essentially resolves. There is 3 mm of anterolisthesis of L 5 upon S1. IMPRESSION: Spondylolisthesis and fusion changes as described above. Transcribed Date/Time: 02/14/2019 10:43 AM
== END 2019-02-14 10:07 | disposition home or self-care (01) ==
LOC: BICRAD 10:06
PROVIDERS: ATTEND Specialist
DX: M43.06 Spondylolysis, lumbar region (principal); M43.16 Spondylolisthesis, lumbar region; M43.17 Spondylolisthesis, lumbosacral region; Z98.1 Arthrodesis status
CPT/HCPCS: 72110

== ENCOUNTER 2019-04-11 11:21 | Outpatient (CLI) | payer MEDICARE, BC ==
--- NOTE | 2019-04-11 12:13 | MMO ---
Bilateral MAMMO Bilat Screen [facility]. CLINICAL HISTORY: Patient is 74 years old and is seen for screening. The patient has the following family history of breast cancer: mother. The patient has no personal history of cancer. VIEWS: The views performed were: bilateral craniocaudal with tomosynthesis and bilateral mediolateral oblique with tomosynthesis. FILMS COMPARED: The present examination has been compared to prior imaging studies performed at [facility] on 03/02/2015, 03/03/2016, 03/14/2017 and 03/19/2018. MAMMOGRAM FINDINGS: There are scattered fibroglandular densities. There are vascular calcifications seen in both breasts. There are no suspicious masses, suspicious calcifications, or new areas of architectural distortion. IMPRESSION: A ROUTINE FOLLOW-UP MAMMOGRAM IN 1 YEAR IS RECOMMENDED. THE RESULTS OF THIS EXAM WERE SENT TO THE PATIENT. ACR BI-RADS Category 2 - Benign finding MAMMOGRAPHY NOTE: 1. A negative mammogram report should not delay a biopsy if a dominant of clinically suspicious mass is present. 2. Approximately 10% to 15% of breast cancers are not detected by mammography. 3. Adenosis and dense breasts may obscure an underlying neoplasm. Reported by: EITAN JENKINS MD Electonically Signed: [id number]
--- NOTE | 2019-04-11 14:27 | CT ---
CT CERVICAL SPINE WITHOUT CONTRAST: Date: 04/11/19 Multiplanar reconstruction with axial tomograms. INDICATION: Neck pain. Comparison made to recent CT cervical spine dated 10/07/18. FINDINGS: Severe degenerative changes in mid cervical spine again noted. There is loss of disc space with promi nent hypertrophic changes throughout, but most prominent at C4-5, C5-6, and C6-7. There is anterolist hesis at C4-5 described previously with prominent posterior spondylosis at these levels. At C3-4, posterior spondylosis abuts the anterior cord. Mild right foraminal narrowing. At C4-5, posterior spondylosis abuts and mildly compresses the anterior cord. Severe right foraminal stenosis and moderate left foraminal stenosis due to hypertrophic change. At C5-6, spondylitic change abuts and mildly flattens the anterior cord. Right foraminal stenosis fro m facet and uncinate hypertrophy. At C6-7, mild spondylosis abuts the anterior cord. Mild left foraminal narrowing. IMPRESSION: Moderate to severe degenerative changes of cervical spine again noted, unchanged from recent CT of as detailed above. POS: [facility]
== END 2019-04-11 11:22 | disposition home or self-care (01) ==
LOC: BICMAMMO 11:21
PROVIDERS: ATTEND Specialist
DX: Z12.31 Encounter for screening mammogram for malignant neoplasm of breast (principal); M54.2 Cervicalgia; M25.512 Pain in left shoulder; M47.812 Spondylosis without myelopathy or radiculopathy, cervical region; Z80.3 Family history of malignant neoplasm of breast
CPT/HCPCS: 72125; 77063; 77067

== ENCOUNTER 2019-04-25 09:51 | Outpatient (CLI) | payer MEDICARE, BC ==
--- NOTE | 2019-04-25 10:21 | RAD ---
XR Shoulder Lt 3 View STANDARD HISTORY: Left shoulder pain FINDINGS: No fracture or dislocation is identified. There are degenerative changes in the glenohumeral and acro mial clavicular joints. IMPRESSION: Left shoulder osteoarthritis.
== END 2019-04-25 09:52 | disposition home or self-care (01) ==
LOC: BICRAD 09:51
PROVIDERS: ATTEND Specialist
DX: M19.112 Post-traumatic osteoarthritis, left shoulder (principal)

== ENCOUNTER 2019-07-08 13:05 | Outpatient (CLI) | payer MEDICARE, BC ==
[2019-07-08 15:41] LABS: Anion Gap 12 mmol/L (10-20); BUN (Urea Nitrogen) 9 mg/dL (9.8-20.1); Calc. Creatinine Clearance 0 mL/min (70-130); Calcium 9.8 mg/dL (7.8-10.44); Carbon Dioxide 31 mmol/L (23-31); Chloride 99 mmol/L (98-107); Estimated GFR-MDRD Greater than 90; Glucose 85 mg/dL (83-110); Potassium 3.1 mmol/L (3.5-5.1); Sodium 139 mmol/L (136-145)
--- NOTE | 2019-07-11 10:09 | EKG ---
Test Reason : Blood Pressure : / mmHG Vent. Rate : 066 BPM Atrial Rate : 066 BPM P-R Int : 188 ms QRS Dur : 088 ms QT Int : 428 ms P-R-T Axes : 040 059 056 degrees QTc Int : 448 ms Normal sinus rhythm Anterior infarct , age undetermined Abnormal ECG Confirmed by BECKY FLORIAN MD ([id number]) on 07/11/2019 10:09:33 AM Referred By: SAÚL Confirmed By:BECKY FLORIAN MD
== END 2019-07-08 13:06 | disposition home or self-care (01) ==
LOC: LABBT 13:05
PROVIDERS: ATTEND Neurological Surgery
DX: Z01.818 Encounter for other preprocedural examination (principal); M54.12 Radiculopathy, cervical region
CPT/HCPCS: 80048; 93005; 93010

== ENCOUNTER 2019-07-16 06:47 | Observation (INO) | payer MEDICARE, BC ==
[2019-07-08 13:31] VITALS: BMI 30.6
[2019-07-16] MEDS ORDERED: Fentanyl 100 MCG/2 ML VIAL ONE ×2 (08:49→11:21)
[2019-07-16] MEDS ORDERED: Lidocaine 2% Jelly 5 ML TUBE ONE (08:49)
[2019-07-16] MEDS ORDERED: Clindamycin/D5W 900 mg/50 ml Premix Bag ONE (09:20)
[2019-07-16] MEDS ORDERED: Levofloxacin 500 mg/D5W 100 ml Premix Bag ONE (09:20)
--- NOTE | 2019-07-16 11:03 | OP ---
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 DIAGNOSIS: Cervical radiculopathy. PROCEDURES PERFORMED: Anterior cervical diskectomy and fusion, C5-C6. DESCRIPTION OF PROCEDURE: The patient was brought into the operating room, placed under general anesthesia. She was placed on table in a supine position. A transverse incision was planned over the lateral aspect of the neck on the right. After prepping and draping and after an appropriate preoperative pause, the incision was created. The underlying platysma muscle was identified and incised. A blunt tissue plane anterior to the sternocleidomastoid muscle was used to gain access to the prevertebral space. Self-retaining retractors were then placed. After identifying the appropriate level with C-arm fluoroscopy, an annulotomy was performed in the C5-C6 disk space. Using distraction pins, disk material as well as anterior and posterior osteophytes were removed until the exiting C6 nerve roots were well decompressed. A 6 mm lordotic PEEK cage packed with allograft and autograft material were then placed within the interbody space. An anterior cervical plate was then fashioned to the front of spine and secured with a total of 4 fixed screws. Midline lateral structures were then inspected and found to be free from significant trauma. The wound was irrigated. Hemostasis was maintained throughout. The wound was then closed in anatomic layers and a pressure dressing was applied. There were no known procedural complications. An AP image was obtained to confirm the placement of the cervical hardware. We also took a thoracic film in order to verify location of the patient's dorsal column stimulator paddle. An AP film suggested the top portion of the paddle was along the inferior border of the C7 vertebral body. Job ID: [id number]
[2019-07-16] MEDS ORDERED: diphenhydrAMINE 50 MG/ML VIAL IVP PRN (12:41)
[2019-07-16] MEDS ORDERED: tiZANidine HCl 4 MG TAB PO PRN (12:41)
[2019-07-16] MEDS ORDERED: Morphine 2 MG/ML SYRINGE SLOW IVP PRN (12:41)
[2019-07-16] MEDS ORDERED: Ondansetron PF 4 MG/2 ML Vial IVP PRN (12:41)
[2019-07-16] MEDS ORDERED: Acetaminophen 325 MG TAB PO PRN (12:41)
[2019-07-16] MEDS ORDERED: Acetaminophen/Codeine 30-300mg Tablet PO PRN (12:41)
[2019-07-16] MEDS ORDERED: Bisacodyl 10 MG SUPP PR PRN (12:41)
[2019-07-16] MEDS ORDERED: Mag-Al 1200 mg/1200 mg/30 ML UDCUP PO PRN (12:41)
[2019-07-16] MEDS ORDERED: Acetaminophen ER (8hr) 650 MG TAB PO PRN (12:43)
[2019-07-16] MEDS ORDERED: ICATIBANT ACETATE 30 MG SC PRN (12:43)
[2019-07-16] MEDS ORDERED: Estrogens, Conjugated 30 GM TUBE VAG PRN (12:43)
[2019-07-16] MEDS ORDERED: Docusate 100 MG CAP PO PRN (12:43)
[2019-07-16] MEDS ORDERED: Benzonatate 100 MG CAP PO PRN (12:43)
[2019-07-16] MEDS ORDERED: PROVENTIL INHALER 6.7 G (200 INHALATIONS) INH PRN (12:43)
[2019-07-16] MEDS ORDERED: Ondansetron ODT 8 MG TAB PO PRN (12:43)
[2019-07-16] MEDS ORDERED: DANAZOL 200 MG PO SCH (12:45)
--- NOTE | 2019-07-16 14:41 | RAD ---
THORACIC SPINE: Single AP fluoroscopic view of thoracic spine taken in OR. INDICATION: Intraoperative imaging to assess stimulator lead placement. FINDINGS/IMPRESSION: A single AP view visualizes the upper and mid thoracic vertebra. An ET tube appears to be in place wi th tip directed to the right mainstem bronchus. Epidural leads are seen overlying the lower thoracic vertebra. POS: [facility]
[2019-07-16] MEDS ORDERED: [UNRECOGNIZED DRUG - OTHER] SLOW IVP PRN (15:00)
[2019-07-16] MEDS: Gabapentin 300 MG CAP PO SCH ×2 (15:03→20:50)
[2019-07-16] MEDS: Acetaminophen/Codeine 30-300mg Tablet PO PRN ×3 (15:14→22:02)
[2019-07-16] MEDS: Clindamycin/D5W 900 MG in Premix Bag 1 BAG IVPB SCH (17:56)
[2019-07-16] MEDS: Mometasone/Formoterol 120 PUFF INHALER INH SCH (20:26)
[2019-07-16] MEDS: Ipratropium Bromide 2.5 ml Neb NEB SCH (20:27)
[2019-07-16] MEDS: busPIRone HCl 10 MG TAB PO SCH (20:50)
[2019-07-16] MEDS: Calcium Carbonate + Vit D 1 TAB PO SCH (20:51)
[2019-07-16] MEDS: Carvedilol 6.25 MG TAB PO SCH (20:51)
[2019-07-16] MEDS ORDERED: Rosuvastatin 5 MG TAB PO SCH (21:00)
[2019-07-16] MEDS ORDERED: Amlodipine 5 MG TAB PO SCH (21:00)
[2019-07-16] MEDS ORDERED: Montelukast Sodium 10 mg Tablet PO SCH (21:00)
[2019-07-16] MEDS: cycloSPORINE 0.05% Ophthalmic Droperette EA EYE SCH (22:43)
[2019-07-17] MEDS: Clindamycin/D5W 900 MG in Premix Bag 1 BAG IVPB SCH (01:18)
[2019-07-17] MEDS: Acetaminophen/Codeine 30-300mg Tablet PO PRN ×3 (01:20→14:27)
[2019-07-17] MEDS: Ipratropium Bromide 2.5 ml Neb NEB SCH ×3 (01:46→12:42)
[2019-07-17] MEDS ORDERED: Cepastat Lozenges 1 LOZ PO PRN (05:18)
[2019-07-17] MEDS ORDERED: Chloraseptic Spray 180 ml Bottle PO PRN (05:19)
[2019-07-17] MEDS: Mometasone/Formoterol 120 PUFF INHALER INH SCH (07:43)
[2019-07-17] MEDS ORDERED: Lactinex Tablet PO SCH (09:00)
[2019-07-17] MEDS ORDERED: Cyanocobalamin (Vitamin B-12) 1,000 MCG TAB PO SCH (09:00)
[2019-07-17] MEDS ORDERED: Vit A,C & E/Lutein/Minerals Tablet PO SCH (09:00)
[2019-07-17] MEDS ORDERED: Multivit, Therapeutic 1 TAB PO SCH (09:00)
[2019-07-17] MEDS ORDERED: Venlafaxine HCl XR 75 MG CAP PO SCH (09:00)
[2019-07-17] MEDS ORDERED: Hydrochlorothiazide 25 MG TAB PO SCH (09:00)
[2019-07-17] MEDS: busPIRone HCl 10 MG TAB PO SCH (09:03)
[2019-07-17] MEDS: Gabapentin 300 MG CAP PO SCH ×2 (09:04→16:56)
[2019-07-17] MEDS: Carvedilol 6.25 MG TAB PO SCH (09:04)
[2019-07-17] MEDS: Calcium Carbonate + Vit D 1 TAB PO SCH (09:04)
[2019-07-17] MEDS: cycloSPORINE 0.05% Ophthalmic Droperette EA EYE SCH (09:52)
[2019-07-17] MEDS ORDERED: Pseudoephedrine HCl 30 MG TAB PO SCH (11:00)
[2019-07-17 15:32] VITALS: BP 103/67; TEMP 98
== END 2019-07-17 16:45 | disposition home or self-care (01) ==
LOC: SDC 06:47 → SURG A 13:30
PROVIDERS: ADMIT Neurological Surgery; ATTEND Neurological Surgery
PROC: 0RG10A0 Fusion of Cervical Vertebral Joint with Interbody Fusion Device, Anterior Approach, Anterior Column, Open Approach (ICD-10-PCS; principal; 2019-07-16)
PROC: 0RT30ZZ Resection of Cervical Vertebral Disc, Open Approach (ICD-10-PCS; 2019-07-16)
DX: M54.12 Radiculopathy, cervical region (principal); Z88.0 Allergy status to penicillin; Z88.8 Allergy status to other drugs, medicaments and biological substances
CPT/HCPCS: 20930; 20936; 22551; 22845; 22853; 72020; 76000; 94640 ×4; 94664; 96365; 96366; C1713; C1776; G0378 ×2; J0690; J1956; J3010; J3490

== ENCOUNTER 2019-09-02 12:41 | Outpatient (CLI) | payer MEDICARE, BC ==
--- NOTE | 2019-09-02 13:51 | RAD ---
PA AND LATERAL CHEST: Date: 09/02/19 HISTORY: Cough. COMPARISON: 01/09/19. FINDINGS: Heart size and mediastinum are within normal limits. Lungs are clear of any infiltrative process. Han e mild chronic interstitial changes are seen. Dorsal column stimulator is present. IMPRESSION: No active intrathoracic disease. Stable chest. POS: [facility]
== END 2019-09-02 12:42 | disposition home or self-care (01) ==
LOC: BICRAD 12:41
PROVIDERS: ATTEND Nurse Practitioner Family
DX: R05 Cough (principal); R06.01 Orthopnea
CPT/HCPCS: 71046

== ENCOUNTER 2019-10-16 13:51 | Outpatient (CLI) | payer MEDICARE, BC ==
--- NOTE | 2019-10-16 16:00 | CT ---
CT CERVICAL SPINE: Axial tomograms were obtained with multiplanar reconstruction. INDICATION: Cervical radiculopathy. Post cervical spine surgery 3 months ago. COMPARISON: Comparison is made to CT cervical spine dated 04/11/2019. FINDINGS: Postoperative changes have occurred since the prior exam at C5-6. Anterior plate and screws are note d at this level and there is an interbody implant. Prominent degenerative changes are again noted with loss of disk space at all levels below C3. Sligh t anterolisthesis at C4-5 is stable from the prior exam. Minimal anterolisthesis at C3-4 is stable. Prominent posterior spondylosis at C5-6 again noted. At C2-3, facet hypertrophy without foraminal or central canal stenosis. At C3-4, spondylosis effaces the anterior subarachnoid space. Right foraminal narrowing due to hyper trophic change. At C4-5, anterolisthesis with posterior spondylosis effaces the anterior subarachnoid space and abuts and mildly compresses the anterior cord. Moderate right foraminal stenosis and mild left foraminal stenosis. At C5-6, mild spondylosis. Right foraminal narrowing due to hypertrophic change. At C6-7, mild spondylosis. No significant cord impingement or foraminal stenosis. IMPRESSION: Postoperative changes now noted at C5-6. The degenerative changes of the cervical spine are again no donald as described above. Not significantly changed when compared to prior study. POS: [facility]
== END 2019-10-16 13:52 | disposition home or self-care (01) ==
LOC: BICCT 13:51
PROVIDERS: ATTEND Neurological Surgery
DX: M47.22 Other spondylosis with radiculopathy, cervical region (principal); Z98.890 Other specified postprocedural states
CPT/HCPCS: 72125

== ENCOUNTER 2020-03-15 11:55 | Outpatient (CLI) | payer MEDICARE, BC ==
--- NOTE | 2020-03-15 12:33 | RAD ---
XR Lumbar Spine Bending Min 4V: 03/15/2020 12:00 AM Low back pain COMPARISON: February 14, 2019 FINDINGS: There are 6 lumbar type vertebra. Fracture: There is been interval development of a superior central endplate fracture of L2. No additi onal fracture is evident. Alignment: There is stable grade 1 anterolisthesis of L6 on S1 and retrolisthesis of L4 on L5. No ab normal translational motion demonstrated. Degenerative Change: Multilevel disc degenerative and facet osteoarthritic change is stable. Bone Mineralization:There is diffuse osteopenia. Soft tissues: There are moderate vascular calcifications seen involving the visualized vasculature. IMPRESSION: 1. Interval development of a superior central endplate fracture of L2. 2. Stable grade 1 anterolisthesis of L6 on S1 and retrolisthesis of L4 on L5 with no abnormal transla tional motion.
== END 2020-03-15 11:56 | disposition home or self-care (01) ==
LOC: BICRAD 11:55
PROVIDERS: ATTEND Specialist
DX: M43.06 Spondylolysis, lumbar region (principal); M43.16 Spondylolisthesis, lumbar region; M43.17 Spondylolisthesis, lumbosacral region; S32.029A Unspecified fracture of second lumbar vertebra, initial encounter for closed fracture
CPT/HCPCS: 72120

== ENCOUNTER 2020-03-24 09:39 | Outpatient (CLI) | payer MEDICARE, BC ==
--- NOTE | 2020-03-24 10:21 | CT ---
Exam: Thoracic spine CT without contrast HISTORY: L1 fracture. Back pain. Multiple back surgeries. FINDINGS: Visualized trachea and central bronchi are patent. Patchy groundglass opacities and linear opacities in the lung parenchyma are not. No definite effusion or pneumothorax. Limited evaluation the mediastinum of the lack of IV contrast. No mass, lymphadenopathy or hematoma. There are coronary calcifications. There is atherosclerosis of the aortic valve. Visualized solid organs do not demonstrate any acute abnormality. Moderate hiatal hernia is noted. There is mild bone demineralization. Multilevel vacuum disc phenomenon with loss of disc space height and osteophyte formation. With regards to the thoracic spine there is no evidence of a acute fracture. There is a laminectomy at T8, T9. There is a dorsal column stimulator that enters the theca l sac at the T10-T11 disc space. Tip terminates at the inferior to mid aspect of 7. Throughout the thoracic spine, there is no high-grade canal stenosis or high-grade neural foraminal IMPRESSION: Postsurgical changes and degenerative changes of the thoracic spine as described above. Refer to sepa rate lumbar spine CT report.
--- NOTE | 2020-03-24 10:45 | CT ---
Exam: Lumbar spine CT without contrast HISTORY: Previous L1 fracture. Lumbar radiculopathy. Previous lumbar fusion. COMPARISON: 05/23/2014 FINDINGS: 5 lumbar type vertebra. Mild compression fracture at L1 with a small amount of paraspinal hematoma. C hronic changes involving the superior endplate of L3. Bilateral transpedicular screws at L4, L5 and S1. The left L4 transpedicular screw extends beyond the superior margin of the vertebral body and terminates in the L3-L4 disc space. Spondylolisthesis: 7.6 mm of anterolisthesis of L5 upon S1. Moderate degenerative change at the L5-S1 disc space, similar to the previous exam. Stable L5 laminectomy. Visualized solid organs do not demonstrate any acute abnormality. Visualized alimentary canal demonst rates diverticulosis. Atherosclerosis of a nonaneurysmal aorta. Visualized sacrum and bony pelvis are intact. Vacuum joint phenomenon in bilateral sacroiliac joints. Limited evaluation of the contents of the central spinal canal and neural foramina. T12-L1: Broad-based disc bulge. Mild central canal stenosis. Patent neural foramina. L1-L2: No significant central canal stenosis or significant neural foraminal narrowing. L2-L3: Vacuum disc phenomenon. No significant central canal stenosis. Right neural foramen is patent. Mild to moderate left neural foraminal narrowing. L3-L4: Broad-based disc bulge abuts the thecal sac. No significant central canal stenosis. Mild bilat eral foraminal narrowing. L4-L5: Laminectomy defect. No significant central canal stenosis or significant neural foraminal narr owing. L5-S1: Laminectomy defect. No significant central canal stenosis or significant neural foraminal narr owing. IMPRESSION: 1. Mild compression fracture at L1 with paraspinal posttraumatic change. No significant retropulsion. 2. Lumbar fusion from L4 through S1. The left L4 screw terminates in the disc space. Screw position i s similar to the previous exam. 3. Grade 1 anterolisthesis of L5 upon S1. 4. Degenerative changes of the lumbar spine as described above. No high-grade central canal stenosis or high-grade foraminal narrowing. Transcribed Date/Time: 03/24/2020 11:12 AM
--- NOTE | 2020-03-24 14:21 | NM ---
Radionucleotide bone scan HISTORY: Back pain. Compression fracture. FINDINGS: Correlated with CT exams earlier on the same date. Heterogeneous predominantly horizontal linear uptake is associated with the L1 vertebral body. There is less linear uptake involving the right side of the T11-12 vertebrae. Degenerative type uptake is apparent in the shoulder and the lower cervical spine. Photopenic defects at the knees with the appearance of prior knee replacement surgeries. Uptake is noted within the urinary bladder overlying the superior pubic rami. IMPRESSION : No evidence of widespread metastatic disease. Abnormalities of the lower thoracic and lumbar spine wi th appearance more suggestive of of mild compression injuries and degenerative changes. Degenerative changes also evident at the cervical spine and shoulders.
== END 2020-03-24 09:40 | disposition home or self-care (01) ==
LOC: CT 09:39
PROVIDERS: ATTEND Specialist
DX: S32.009D Unspecified fracture of unspecified lumbar vertebra, subsequent encounter for fracture with routine healing (principal); M47.816 Spondylosis without myelopathy or radiculopathy, lumbar region; M43.16 Spondylolisthesis, lumbar region; M48.061 Spinal stenosis, lumbar region without neurogenic claudication; M47.814 Spondylosis without myelopathy or radiculopathy, thoracic region; M47.812 Spondylosis without myelopathy or radiculopathy, cervical region; M19.011 Primary osteoarthritis, right shoulder; M19.012 Primary osteoarthritis, left shoulder; Z98.1 Arthrodesis status
CPT/HCPCS: 72128; 72131; 78306; A9503

== ENCOUNTER 2020-04-05 07:16 | Outpatient (CLI) | payer MEDICARE, BC, OTHER ==
[2020-04-05 14:19] LABS: Anion Gap 14 mmol/L (10-20); BUN (Urea Nitrogen) 5 mg/dL (9.8-20.1); Calc. Creatinine Clearance 0 mL/min (70-130); Calcium 9.6 mg/dL (7.8-10.44); Carbon Dioxide 30 mmol/L (23-31); Chloride 100 mmol/L (98-107); Estimated GFR-MDRD 86; Glucose 74 mg/dL (83-110); Sodium 141 mmol/L (136-145)
[2020-04-05 14:26] LABS: Potassium 2.9 mmol/L (3.5-5.1)
[2020-04-06 12:22] LABS: SARS-CoV-2 MS2 Positive; SARS-CoV-2 N Gene Negative; SARS-CoV-2 S Gene Negative; SARS-CoV-2 orf1ab Negative
== END 2020-04-05 07:17 | disposition home or self-care (01) ==
LOC: LABBT 07:16
PROVIDERS: ATTEND Specialist
DX: Z01.818 Encounter for other preprocedural examination (principal); Z11.59 Encounter for screening for other viral diseases
CPT/HCPCS: 80048; 93005; U0003; 87635; 93010

== ENCOUNTER 2020-04-08 10:28 | Day surgery (SDC) | payer MEDICARE, BC ==
[2020-04-02 11:59] VITALS: BMI 31.6
[~2020-04-08 10:28] MED LIST: PROPOFOL 200 MG/20 ML VIAL ONE
[2020-04-08] MEDS ORDERED: Bupivacaine PF 0.5% 30 ML VIAL ONE (11:34)
[2020-04-08] MEDS ORDERED: Iopamidol 50 ML FS ONE (11:34)
[2020-04-08] MEDS ORDERED: Lidocaine 2% w/Epi 1:100K 1.7 ML VIAL (Dental) ONE (11:34)
[2020-04-08] MEDS ORDERED: Lidocaine 2% w/Epinephrine 1:200K 20 ML VIAL ONE (11:34)
[2020-04-08] MEDS ORDERED: Fentanyl 100 MCG/2 ML VIAL ONE (12:01)
[2020-04-08] MEDS ORDERED: Levofloxacin 500 mg/D5W 100 ml Premix Bag ONE (12:36)
[2020-04-08] MEDS ORDERED: Ketamine 50 MG/ML (10ML VIAL) ONE (13:01)
[2020-04-08] MEDS ORDERED: Midazolam HCl 2 mg/2 ml Vial ONE (13:02)
--- NOTE | 2020-04-08 13:54 | RAD ---
LUMBAR SPINE: 04/08/20 Three fluoroscopic images of the lumbar spine presented from the OR. INDICATIONS: Operative imaging during kyphoplasty at L1. FINDINGS/IMPRESSION: These three images show kyphoplasty changes at the L1 vertebra. There are postoperative changes in th e lower lumbar spine with pedicle screws and rods at L4, L5 and S1 levels. Posterior laminectomy rosa ges at the lower lumbar spine is noted. POS: [facility]
[2020-04-08] MEDS ORDERED: HYDROcodone/Acetaminophen 5/325 mg Tablet ONE (14:37)
--- NOTE | 2020-04-08 19:57 | OP ---
DATE OF PROCEDURE: 04/08/2020 PREOPERATIVE DIAGNOSES: 1. Lumbar L1 vertebral compression fracture. 2. Pathologic compression fracture of the vertebral spine, lumbar. POSTOPERATIVE DIAGNOSES: 1. Lumbar L1 vertebral compression fracture. 2. Pathologic compression fracture of the vertebral spine, lumbar. PROCEDURE PERFORMED: Kyphoplasty of L1. SPECIMENS: None. ESTIMATED BLOOD LOSS: None. DESCRIPTION OF PROCEDURE: The patient was taken to the procedure room and placed prone on the procedure room table. A time-out was performed. We prepped the back with DuraPrep and sterile drapes were applied. Using fluoroscopy, we located the vertebral body of the L1. We squared the endplates and then oblique toward the right to evaluate the pedicle. The pedicle there was very small, which was consistent with her CT scan. Therefore, we decided on an extra pedicular approach. We anesthetized the skin and subcutaneous layers with 0.5% Marcaine plain. We inserted an 11-gauge MAZ trocar through the skin and advanced it to the side of the pedicle. Under AP and lateral views, we used a mallet to advance the trocar into the cortex of the vertebral body without violating the medial cortex of the pedicle. Once inside the vertebral body, we used a MAZ drill to drill a hole through the fracture and crossed the midline. A balloon was then inserted through the trocar. This balloon was inflated with contrast and images were saved. Recreated a cavity using approximately 2 mL of contrast and 300 psi of the balloon. The balloon was removed. A curved needle was then placed through the trocar and the mallet was used to advance this and cross midline. We then used Cortoss cement and injected this through the curved needle under continuous fluoroscopy in lateral view to ensure that there was no posterior spread. Cortoss was spread throughout the entire vertebral body. We used approximately 3 mL. The curved needle was then removed. The stylet was placed through the trocar and this was gently removed after approximately 2 minutes using continuous fluoroscopy to ensure that the cement was not coming following the trocar out. Pressure was held over the wound. Sterile 4x4s, Medipore tape were placed over the puncture site and the patient was taken to the Day Stay under stable condition. Job ID: [id number]
== END 2020-04-08 16:30 | disposition home or self-care (01) ==
LOC: SDC 10:28
PROVIDERS: ATTEND Specialist
PROC: 0QS03ZZ Reposition Lumbar Vertebra, Percutaneous Approach (ICD-10-PCS; principal; 2020-04-08)
PROC: 0QU03JZ Supplement Lumbar Vertebra with Synthetic Substitute, Percutaneous Approach (ICD-10-PCS; 2020-04-08)
DX: M48.56XA Collapsed vertebra, not elsewhere classified, lumbar region, initial encounter for fracture (principal); M48.04 Spinal stenosis, thoracic region; M50.122 Cervical disc disorder at C5-C6 level with radiculopathy; M51.16 Intervertebral disc disorders with radiculopathy, lumbar region; G89.4 Chronic pain syndrome; M96.1 Postlaminectomy syndrome, not elsewhere classified; M19.112 Post-traumatic osteoarthritis, left shoulder; G60.9 Hereditary and idiopathic neuropathy, unspecified; F32.9 Major depressive disorder, single episode, unspecified; F41.9 Anxiety disorder, unspecified; I10 Essential (primary) hypertension; K21.9 Gastro-esophageal reflux disease without esophagitis; E78.5 Hyperlipidemia, unspecified; J45.909 Unspecified asthma, uncomplicated; D84.1 Defects in the complement system; Z79.899 Other long term (current) drug therapy; Z88.0 Allergy status to penicillin; Z88.1 Allergy status to other antibiotic agents; Z88.8 Allergy status to other drugs, medicaments and biological substances; Z98.1 Arthrodesis status
CPT/HCPCS: 72100; 76000; J1956; J2250; J3010; Q9967; S0020

== ENCOUNTER 2020-04-19 13:10 | Outpatient (CLI) | payer MEDICARE, BC ==
--- NOTE | 2020-04-19 13:37 | MMO ---
Bilateral MAMMO Bilat Screen [facility]. CLINICAL HISTORY: Patient is 75 years old and is seen for screening. The patient has the following family history of breast cancer: mother. The patient has no personal history of cancer. VIEWS: The views performed were: bilateral craniocaudal with tomosynthesis and bilateral mediolateral oblique with tomosynthesis. FILMS COMPARED: The present examination has been compared to prior imaging studies performed at [facility] on 03/03/2016, 03/14/2017, 03/19/2018 and 04/11/2019. This study has been interpreted with the assistance of computer-aided detection. MAMMOGRAM FINDINGS: There are scattered fibroglandular densities. There are stable benign appearing calcifications seen in both breasts. There are no suspicious masses, suspicious calcifications, or new areas of architectural distortion. IMPRESSION: THERE IS NO MAMMOGRAPHIC EVIDENCE OF MALIGNANCY. A ROUTINE FOLLOW-UP MAMMOGRAM IN 1 YEAR IS RECOMMENDED. THE RESULTS OF THIS EXAM WERE SENT TO THE PATIENT. ACR BI-RADS Category 2 - Benign finding MAMMOGRAPHY NOTE: 1. A negative mammogram report should not delay a biopsy if a dominant of clinically suspicious mass is present. 2. Approximately 10% to 15% of breast cancers are not detected by mammography. 3. Adenosis and dense breasts may obscure an underlying neoplasm. Reported by: AMALIA STOVALL MD Electonically Signed: [id number]
== END 2020-04-19 13:11 | disposition home or self-care (01) ==
LOC: BICMAMMO 13:10
PROVIDERS: ATTEND Specialist
DX: Z12.31 Encounter for screening mammogram for malignant neoplasm of breast (principal); Z80.3 Family history of malignant neoplasm of breast
CPT/HCPCS: 77063; 77067

== ENCOUNTER 2020-07-26 12:39 | Outpatient (CLI) | payer MEDICARE, BC ==
--- NOTE | 2020-07-26 13:46 | RAD ---
THORACIC SPINE 3 VIEWS: Date: 07/26/2020 HISTORY: Chronic back pain. FINDINGS/IMPRESSION: Multilevel degenerative changes are present. Postop changes of laminectomy at T8-T9 and dorsal column stimulator are again seen as on the CT scan of 03/24/2020. POS: [facility]
--- NOTE | 2020-07-26 13:53 | RAD ---
XR Lumbar Spine 2 Or 3 View History: Chronic low back pain Comparison: Lumbar spine radiograph April 08, 2020. Lumbar spine CT March 24, 2020. Findings: Indwelling cement within the L1 vertebral body. Severe degenerative disease of T11/T12. Superior L3 endplate Schmorl's node is similar. No new acute fracture or malalignment. Grade 1 L4 ove r L5 anterolisthesis has not progressed with posterior spinal fusion hardware from L4-S1. The left L4 pedicle screw extends into the L3/L4 disc space. Mild reverse S-shaped scoliosis thoracolumbar spine. Calcified splenic artery. Dorsal column stimulat or electrode leads enter the canal at the lower thoracic spine. Impression: 1. Indwelling cement within the L1 vertebral body without progressive height loss. 2. Superior endplate Schmorl's noted of L3 is similar. 4. No acute fracture. 5. The left transpedicular screw of L4 tip enters the L3/L4 disc space through the superior L4 endpla te.
== END 2020-07-26 12:40 | disposition home or self-care (01) ==
LOC: BICRAD 12:39
PROVIDERS: ATTEND Nurse Practitioner Family
DX: M51.16 Intervertebral disc disorders with radiculopathy, lumbar region (principal); M48.04 Spinal stenosis, thoracic region; Z98.890 Other specified postprocedural states
CPT/HCPCS: 72072; 72100

== ENCOUNTER 2020-09-30 11:42 | Outpatient (CLI) | payer MEDICARE, BC ==
--- NOTE | 2020-09-30 12:29 | RAD ---
XR Hip Lt 2-3 View HISTORY: Left hip pain FINDINGS: No fracture or dislocation is identified. Mild degenerative changes are present in the left hip.
--- NOTE | 2020-09-30 12:31 | RAD ---
XR Hip Rt 2-3 View HISTORY: Right hip pain FINDINGS: No fracture or dislocation is identified. Mild degenerative changes are seen in the right hip joint.
== END 2020-09-30 11:43 | disposition home or self-care (01) ==
LOC: BICRAD 11:42
PROVIDERS: ATTEND Neurological Surgery
DX: M25.551 Pain in right hip (principal); M25.552 Pain in left hip; M16.0 Bilateral primary osteoarthritis of hip

== ENCOUNTER 2021-01-12 14:13 | Outpatient (CLI) | payer MEDICARE, BC | END 2021-01-12 14:14 | disposition home or self-care (01) | LOC: BICRAD 14:13 | PROVIDERS: ATTEND Nurse Practitioner Family | DX: R07.81 Pleurodynia (principal) ==

== ENCOUNTER 2021-04-19 11:49 | Outpatient (CLI) | payer MEDICARE, BC | END 2021-04-19 11:50 | disposition home or self-care (01) | LOC: BICRAD 11:49 | PROVIDERS: ATTEND Specialist | DX: M54.2 Cervicalgia (principal); M54.6 Pain in thoracic spine; M47.814 Spondylosis without myelopathy or radiculopathy, thoracic region; M47.812 Spondylosis without myelopathy or radiculopathy, cervical region; Z98.890 Other specified postprocedural states | CPT/HCPCS: 72040; 72072 ==

== ENCOUNTER 2021-05-11 12:12 | Outpatient (CLI) | payer MEDICARE, BC | END 2021-05-11 12:13 | disposition home or self-care (01) | LOC: BICMAMMO 12:12 | PROVIDERS: ATTEND Specialist | DX: Z12.31 Encounter for screening mammogram for malignant neoplasm of breast (principal); Z80.3 Family history of malignant neoplasm of breast | CPT/HCPCS: 77063; 77067 ==

== ENCOUNTER 2021-07-19 12:13 | Outpatient (CLI) | payer MEDICARE, BC | END 2021-07-19 12:14 | disposition home or self-care (01) | LOC: BICCT 12:13 | PROVIDERS: ATTEND Specialist | DX: M50.120 Mid-cervical disc disorder, unspecified level (principal); M48.02 Spinal stenosis, cervical region; M47.816 Spondylosis without myelopathy or radiculopathy, lumbar region; I25.10 Atherosclerotic heart disease of native coronary artery without angina pectoris; I73.9 Peripheral vascular disease, unspecified; K44.9 Diaphragmatic hernia without obstruction or gangrene; Z98.1 Arthrodesis status | CPT/HCPCS: 72125; 72128; 72131 ==

== ENCOUNTER 2021-08-17 15:23 | Outpatient (CLI) | payer MEDICARE, BC ==
[2021-08-17 17:27] LABS: Anion Gap 13 mmol/L (10-20); BUN (Urea Nitrogen) 6 mg/dL (9.8-20.1); Calc. Creatinine Clearance 0 mL/min (70-130); Calcium 8.9 mg/dL (7.8-10.44); Carbon Dioxide 29 mmol/L (23-31); Chloride 104 mmol/L (98-107); Glucose 138 mg/dL (83-110); Potassium 4.3 mmol/L (3.5-5.1); Sodium 142 mmol/L (136-145)
[2021-08-18 00:41] LABS: SARS-CoV-2 PCR by NAA Not Detected (NotDetected)
== END 2021-08-17 15:24 | disposition home or self-care (01) ==
LOC: LABBT 15:23
PROVIDERS: ATTEND Neurological Surgery
DX: Z01.818 Encounter for other preprocedural examination (principal); S22.009A Unspecified fracture of unspecified thoracic vertebra, initial encounter for closed fracture; Z20.822 Contact with and (suspected) exposure to COVID-19
CPT/HCPCS: 80048; 93005; U0003; U0005; 93010

== ENCOUNTER 2021-08-22 05:43 | Day surgery (SDC) | payer MEDICARE, BC ==
[2021-08-18 12:18] VITALS: BMI 32.1
[2021-08-22] MEDS ORDERED: Thrombin 5000 UNITS/5 ML VIAL ONE (06:25)
[2021-08-22] MEDS ORDERED: EPINEPHrine 1 MG/ML AMP ONE (06:25)
[2021-08-22] MEDS ORDERED: Bupivacaine 0.25% HCL 30 ML VIAL ONE (06:25)
[2021-08-22] MEDS ORDERED: Bupivacaine PF 0.5% 30 ML VIAL ONE (06:25)
[2021-08-22] MEDS ORDERED: Fentanyl 100 MCG/2 ML VIAL ONE ×2 (06:45→09:01)
[2021-08-22] MEDS ORDERED: Ketamine 50 MG/ML (10ML VIAL) ONE (06:45)
[2021-08-22] MEDS ORDERED: Levofloxacin 500 mg/D5W 100 ml Premix Bag ONE (06:50)
[2021-08-22] MEDS ORDERED: Clindamycin/D5W 900 mg/50 ml Premix Bag ONE (06:50)
[2021-08-22] MEDS ORDERED: Midazolam HCl 2 mg/2 ml Vial ONE (06:57)
[2021-08-22] MEDS ORDERED: diphenhydrAMINE 50 MG/ML VIAL ONE (07:05)
[2021-08-22] MEDS ORDERED: Metoclopramide HCl 10 MG/2 ML VIAL ONE (07:05)
[2021-08-22] MEDS ORDERED: Lidocaine 1% PF 5 ML VIAL ONE (07:05)
[2021-08-22] MEDS ORDERED: PROPOFOL 200 MG/20 ML VIAL ONE (07:05)
[2021-08-22] MEDS ORDERED: ePHEDrine 50 MG/ML VIAL ONE (07:05)
[2021-08-22] MEDS ORDERED: Rocuronium Bromide 10 MG/ML (10ML VIAL) ONE (07:05)
[2021-08-22 07:13] LABS: Hemoglobin 13.9 g/dL (12.0-16.0)
[2021-08-22] MEDS ORDERED: SUGAMMADEX SODIUM 200 MG/2 ML VIAL ONE (07:59)
[2021-08-22] MEDS ORDERED: HYDROcodone/Acetaminophen 7.5/325 mg Tablet ONE ×2 (10:18→14:19)
== END 2021-08-22 14:28 ==
LOC: SDC 05:43
PROVIDERS: ATTEND Neurological Surgery
PROC: 0RG7071 Fusion of 2 to 7 Thoracic Vertebral Joints with Autologous Tissue Substitute, Posterior Approach, Posterior Column, Open Approach (ICD-10-PCS; principal; 2021-08-22)
DX: S22.089A Unspecified fracture of T11-T12 vertebra, initial encounter for closed fracture (principal); S32.019A Unspecified fracture of first lumbar vertebra, initial encounter for closed fracture; M47.815 Spondylosis without myelopathy or radiculopathy, thoracolumbar region; Z79.899 Other long term (current) drug therapy; Z88.0 Allergy status to penicillin; Z88.1 Allergy status to other antibiotic agents; Z88.8 Allergy status to other drugs, medicaments and biological substances; Z98.1 Arthrodesis status; X58.XXXA Exposure to other specified factors, initial encounter
CPT/HCPCS: 76000; 85014; 85018; C1768; J0171; J1200; J1956; J2250; J2704; J2765; J3010; J3490; S0020

== ENCOUNTER 2022-05-19 09:46 | Observation (INO) | payer MEDICARE, BC ==
[2022-05-17 14:48] VITALS: BMI 29.9
[2022-05-19] MEDS ORDERED: fentaNYL Citrate/PF 100 MCG/2 ML SYRINGE ONE (11:43)
[2022-05-19] MEDS ORDERED: Sodium Chloride 0.9% 100 ML ONE (11:53)
[2022-05-19] MEDS ORDERED: cefOXitin 2 GM VIAL ONE (11:53)
[2022-05-19] MEDS ORDERED: Midazolam HCl 2 mg/2 ml Vial ONE ×2 (11:59→12:04)
[2022-05-19] MEDS ORDERED: PROPOFOL 200 MG/20 ML VIAL ONE (12:11)
[2022-05-19] MEDS ORDERED: Lidocaine 1% MPF 2 ML VIAL ONE (12:11)
[2022-05-19] MEDS ORDERED: Dexamethasone 20 MG/5 ML VIAL ONE (12:11)
[2022-05-19] MEDS ORDERED: Glycopyrrolate 0.2 MG/ML 5 ML SYRINGE ONE (12:11)
[2022-05-19] MEDS ORDERED: Rocuronium Bromide 10 MG/ML (10ML VIAL) ONE (12:11)
[2022-05-19] MEDS ORDERED: NEOSTIGMINE 3 MG/3 ML SYR 3 MG/3 ML SYRINGE ONE (12:11)
[2022-05-19] MEDS ORDERED: Ondansetron PF 4 MG/2 ML Vial ONE (12:11)
[2022-05-19] MEDS ORDERED: Bupivacaine/Epinephrine 0.25% 30 ML VIAL ONE (12:20)
[2022-05-19] MEDS ORDERED: Lidocaine 2% Jelly 5 ML TUBE ONE (12:20)
[2022-05-19] MEDS ORDERED: Promethazine HCl 25 MG/ML VIAL IM PRN ×2 (13:12→13:27)
[2022-05-19] MEDS ORDERED: Promethazine HCl 25 MG/ML VIAL IVPB PRN (13:12)
[2022-05-19] MEDS ORDERED: Ondansetron HCl/PF 4 MG/2 ML Vial IVP PRN (13:12)
[2022-05-19] MEDS ORDERED: Fentanyl 100 MCG/2 ML VIAL ONE ×3 (13:24→17:22)
[2022-05-19] MEDS ORDERED: hydrALAZINE 20 MG/ML VIAL SLOW IVP PRN (13:27)
[2022-05-19] MEDS ORDERED: Ondansetron PF 4 MG/2 ML Vial IVP PRN (13:27)
[2022-05-19] MEDS ORDERED: Pepto Bismol Chew TAB PO PRN (13:27)
[2022-05-19] MEDS ORDERED: Dextrose 50% Abboject 50 ML SYRINGE SLOW IVP PRN (13:27)
[2022-05-19] MEDS ORDERED: Acetaminophen 325 MG TAB PO PRN (13:27)
[2022-05-19] MEDS ORDERED: Dextrose 5% in Water 1,000 ML IV PRN (13:27)
[2022-05-19] MEDS ORDERED: Estrogens, Conjugated 30 GM TUBE VAG PRN (13:27)
[2022-05-19] MEDS ORDERED: Morphine 4 MG/ML VIAL SLOW IVP PRN (13:27)
[2022-05-19] MEDS ORDERED: HYDROmorphone 2 MG/ML VIAL ONE (14:00)
[2022-05-19] MEDS ORDERED: Artificial Tear Sol 15 ML BOT EA EYE PRN (15:04)
[2022-05-19] MEDS: Sodium Chloride 0.9% 1,000 ML IV SCH (18:50)
[2022-05-19] MEDS: Pregabalin 75 MG CAP PO SCH ×2 (19:24→20:40)
[2022-05-19] MEDS: Mometasone 200 MCG/Formoterol 5 MCG 120 PUFF INHALER INH SCH (19:47)
[2022-05-19] MEDS: HYDROcodone/Acetaminophen 10/325 mg Tablet PO PRN (20:39)
[2022-05-19] MEDS: Famotidine 20 MG TAB PO SCH (20:40)
[2022-05-19] MEDS: Potassium Chloride 8 MEQ TAB PO SCH (20:40)
[2022-05-19] MEDS: Famotidine/PF 20 mg/2ml Vial SLOW IVP SCH (20:42)
[2022-05-19] MEDS ORDERED: Rosuvastatin 5 MG TAB PO SCH (21:00)
[2022-05-20] MEDS: HYDROcodone/Acetaminophen 10/325 mg Tablet PO PRN ×4 (00:23→13:31)
[2022-05-20] MEDS: Sodium Chloride 0.9% 1,000 ML IV SCH (05:38)
[2022-05-20] MEDS: Mometasone 200 MCG/Formoterol 5 MCG 120 PUFF INHALER INH SCH (07:43)
[2022-05-20] MEDS: Pregabalin 75 MG CAP PO SCH (08:28)
[2022-05-20] MEDS: Famotidine 20 MG TAB PO SCH (08:30)
[2022-05-20] MEDS: Potassium Chloride 8 MEQ TAB PO SCH (08:43)
[2022-05-20] MEDS ORDERED: Hydrochlorothiazide 25 MG TAB PO SCH (09:00)
[2022-05-20] MEDS ORDERED: [UNRECOGNIZED DRUG - OTHER] PO SCH (09:00)
[2022-05-20] MEDS ORDERED: NIACIN PO SCH (09:00)
[2022-05-20] MEDS ORDERED: RIBOFLAVIN PO SCH (09:00)
[2022-05-20] MEDS ORDERED: Polyvinyl Alcohol 1.4%/Povidone 0.6% Opth Drops EA EYE SCH (09:00)
[2022-05-20] MEDS ORDERED: [UNRECOGNIZED DRUG - OTHER] PO SCH (09:00)
[2022-05-20] MEDS ORDERED: Montelukast Sodium 10 mg Tablet PO SCH (09:00)
[2022-05-20] MEDS ORDERED: Vit A,C & E/Lutein/Minerals Tablet PO SCH (09:00)
[2022-05-20] MEDS ORDERED: Polyethylene Glycol 3350 17 GM Packet PO SCH (09:00)
[2022-05-20] MEDS ORDERED: Cyanocobalamin (Vitamin B-12) 1,000 MCG TAB PO SCH (09:00)
[2022-05-20] MEDS ORDERED: Floranex 1 GM Packet PO SCH (09:00)
[2022-05-20] MEDS ORDERED: metFORMIN 500 MG TAB PO SCH (09:00)
[2022-05-20] MEDS ORDERED: CYANOCOBALAMIN PO SCH (09:00)
[2022-05-20] MEDS ORDERED: Venlafaxine HCl XR 150 MG CAP PO SCH (09:00)
[2022-05-20] MEDS ORDERED: PYRIDOXINE PO SCH (09:00)
[2022-05-20] MEDS: Famotidine/PF 20 mg/2ml Vial SLOW IVP SCH (10:12)
[2022-05-20 12:23] VITALS: BP 140/69; TEMP 97.9
== END 2022-05-20 15:00 | disposition home or self-care (01) ==
LOC: SDC 09:46 → 2SW 13:17
PROVIDERS: ADMIT Surgery; ATTEND Surgery
PROC: 06BY3ZC Excision of Hemorrhoidal Plexus, Percutaneous Approach (ICD-10-PCS; principal; 2022-05-19)
PROC: 06BY3ZC Excision of Hemorrhoidal Plexus, Percutaneous Approach (ICD-10-PCS; 2022-05-19)
DX: K64.8 Other hemorrhoids (principal); K64.4 Residual hemorrhoidal skin tags; I25.10 Atherosclerotic heart disease of native coronary artery without angina pectoris; I11.0 Hypertensive heart disease with heart failure; I50.9 Heart failure, unspecified; K21.9 Gastro-esophageal reflux disease without esophagitis; E78.5 Hyperlipidemia, unspecified; J45.909 Unspecified asthma, uncomplicated; G89.29 Other chronic pain; M54.9 Dorsalgia, unspecified; G62.9 Polyneuropathy, unspecified; Z79.84 Long term (current) use of oral hypoglycemic drugs; Z79.899 Other long term (current) drug therapy; Z88.0 Allergy status to penicillin; Z88.1 Allergy status to other antibiotic agents; Z88.8 Allergy status to other drugs, medicaments and biological substances
CPT/HCPCS: 88304; 93005; 93010; 94664; J0360; J0694; J1100; J1170; J2250; J2405; J2704; J3010; J3490; J7050

== ENCOUNTER 2023-01-23 12:27 | Outpatient (CLI) | payer MEDICARE, BC | END 2023-01-23 12:28 | disposition home or self-care (01) | LOC: BICMAMMO 12:27 | PROVIDERS: ATTEND Specialist | DX: Z12.31 Encounter for screening mammogram for malignant neoplasm of breast (principal) | CPT/HCPCS: 77063; 77067 ==

== ENCOUNTER 2023-03-07 13:50 | Outpatient (CLI) | payer MEDICARE, BC | END 2023-03-07 13:51 | disposition home or self-care (01) | LOC: BICCT 13:50 | PROVIDERS: ATTEND Specialist | DX: M47.22 Other spondylosis with radiculopathy, cervical region (principal); M47.14 Other spondylosis with myelopathy, thoracic region; M51.17 Intervertebral disc disorders with radiculopathy, lumbosacral region; M47.816 Spondylosis without myelopathy or radiculopathy, lumbar region; K44.9 Diaphragmatic hernia without obstruction or gangrene; Z98.890 Other specified postprocedural states | CPT/HCPCS: 72125; 72128; 72131 ==

== ENCOUNTER 2023-03-08 14:02 | Outpatient (CLI) | payer MEDICARE, BC ==
[2023-03-08 15:15] LABS: #Monocytes 0.5 10x3/uL (0.0-1.1); %Basophils 0.1 % (0.0-2.0); %Eosinophils 0.1 % (0.0-6.0); %Lymphocytes 14.1 % (18.0-47.0); %Monocytes 6.3 % (0.0-10.0); Hemoglobin 12.6 g/dL (12.0-15.5); Mean Corpuscular HGB CONC 31.6 g/dL (32.0-36.0); Mean Corpuscular Hemoglobin 27.6 pg (27.0-33.0); Mean Corpuscular Volume 87.3 fl (81.6-98.3); Mean Platelet Volume 9.9 fl (7.4-10.4); Platelet Count 287 10x3/uL (150-450); RBC Distribution Width 15.5 % (11.5-14.5); Red Blood Cell (RBC) Count 4.57 10x6/uL (3.90-5.03); White Blood Cell (WBC) Count 7.6 10x3/uL (3.5-10.5)
[2023-03-08 15:52] LABS: Anion Gap 13 mmol/L (10-20); BUN (Urea Nitrogen) 11 mg/dL (9.8-20.1); Calc. Creatinine Clearance 0 mL/min (70-130); Calcium 8.8 mg/dL (7.8-10.44); Carbon Dioxide 25 mmol/L (23-31); Chloride 104 mmol/L (98-107); Estimated GFR 90; Glucose 94 mg/dL (83-110); Potassium 3.8 mmol/L (3.5-5.1); Sodium 138 mmol/L (136-145)
== END 2023-03-08 14:03 | disposition home or self-care (01) ==
LOC: LABBT 14:02
PROVIDERS: ATTEND Orthopaedic Surgery Hand Surgery
DX: Z01.818 Encounter for other preprocedural examination (principal); D48.9 Neoplasm of uncertain behavior, unspecified; M67.843 Other specified disorders of tendon, right hand
CPT/HCPCS: 80048; 85025; 93005; 93010

== ENCOUNTER 2023-04-23 20:26 | Inpatient (IN) | payer MEDICARE, BC ==
[2023-04-23 21:22] LABS: #Eosinphils 0.3 thou/uL (0.0-0.7); #Monocytes 0.5 thou/uL (0.11-0.59); #Neutrophils 4.6 thou/uL (1.40-6.50); %Basophils 0.4 % (0.0-1.0); %Eosinophils 4.8 % (0.0-10.0); %Lymphocytes 19.8 % (21.0-51.0); %Monocytes 7.5 % (0.0-10.0); %Neutrophils 67.1 % (42.0-75.0); Hematocrit 38.7 % (36.0-47.0); Hemoglobin 12.7 g/dL (12.0-16.0); Mean Corpuscular HGB CONC 32.8 g/dL (32.0-36.0); Mean Corpuscular Hemoglobin 28.1 pg (27.0-31.0); Mean Corpuscular Volume 85.6 fl (78.0-98.0); Mean Platelet Volume 10.3 fL (7.4-10.4); Platelet Count 205 10x3/uL (130-400); RBC Distribution Width 15.9 % (11.5-14.5); Red Blood Cell (RBC) Count 4.52 mill/uL (4.20-5.40); White Blood Cell (WBC) Count 6.8 10x3/uL (4.8-10.8)
[2023-04-23 21:43] LABS: ALT (SGPT) 24 U/L (8-55); AST (SGOT) 30 U/L (5-34); Albumin 3.7 g/dL (3.4-4.8); Alkaline Phosphatase 97 U/L (40-110); Anion Gap 14 mmol/L (10-20); BUN (Urea Nitrogen) 14 mg/dL (9.8-20.1); Bilirubin, Total 0.2 mg/dL (0.2-1.2); Calc. Creatinine Clearance 0 mL/min (70-130); Carbon Dioxide 24 mmol/L (23-31); Chloride 101 mmol/L (98-107); Estimated GFR 82; Globulin 2.6 g/dL (2.4-3.5); Glucose 111 mg/dL (83-110); Magnesium 1.9 mg/dL (1.6-2.6); Potassium 3.3 mmol/L (3.5-5.1); Protein, Total 6.3 g/dL (5.8-8.1); Sodium 136 mmol/L (136-145)
[2023-04-24 01:48] VITALS: BMI 32.4
[2023-04-24 02:02] LABS: Troponin I Less than 0.010 ng/mL (< 0.028)
[2023-04-24] MEDS ORDERED: cloNIDine 0.1 MG TAB PO PRN (04:33)
[2023-04-24 04:53] LABS: Troponin I Less than 0.010 ng/mL (< 0.028)
[2023-04-24] MEDS: Mometasone 100 MCG/Formoterol 5 MCG 120 PUFF INHALER INH SCH ×2 (07:52→18:21)
[2023-04-24] MEDS: Fluticasone Propionate Nasal Spray 16 gm Bottle NASAL SCH (08:07)
[2023-04-24] MEDS: Hydrochlorothiazide 25 MG TAB PO SCH (08:13)
[2023-04-24] MEDS: Losartan 25 MG TAB PO SCH (08:14)
[2023-04-24] MEDS: Carvedilol 25 MG TAB PO SCH ×2 (08:14→17:35)
[2023-04-24] MEDS: Potassium Chloride 20 MEQ TAB PO SCH ×2 (08:14→17:35)
[2023-04-24] MEDS: Venlafaxine HCl XR 150 MG CAP PO SCH (08:14)
[2023-04-24] MEDS: Pregabalin 75 MG CAP PO SCH ×3 (10:20→21:15)
[2023-04-24] MEDS: Montelukast Sodium 10 mg Tablet PO SCH (21:16)
[2023-04-24] MEDS: Rosuvastatin 10 MG TAB PO SCH (21:16)
[2023-04-24] MEDS: Acetaminophen 325 MG TAB PO PRN (22:46)
[2023-04-25] MEDS: Levothyroxine Sodium 25 MCG TAB PO SCH (06:14)
[2023-04-25 06:32] LABS: #Eosinphils 0.3 thou/uL (0.0-0.7); #Monocytes 0.6 thou/uL (0.11-0.59); #Neutrophils 2.7 thou/uL (1.40-6.50); %Basophils 0.8 % (0.0-1.0); %Eosinophils 6.4 % (0.0-10.0); %Lymphocytes 30.7 % (21.0-51.0); %Monocytes 11.1 % (0.0-10.0); %Neutrophils 50.6 % (42.0-75.0); Hematocrit 40.3 % (36.0-47.0); Hemoglobin 12.9 g/dL (12.0-16.0); Mean Corpuscular Hemoglobin 27.9 pg (27.0-31.0); Mean Corpuscular Volume 87.2 fl (78.0-98.0); Mean Platelet Volume 10.3 fL (7.4-10.4); Platelet Count 205 10x3/uL (130-400); RBC Distribution Width 16.4 % (11.5-14.5); Red Blood Cell (RBC) Count 4.62 mill/uL (4.20-5.40); White Blood Cell (WBC) Count 5.3 10x3/uL (4.8-10.8)
[2023-04-25 06:58] LABS: Anion Gap 14 mmol/L (10-20); BUN (Urea Nitrogen) 14 mg/dL (9.8-20.1); Calc. Creatinine Clearance 98 mL/min (70-130); Calcium 9.3 mg/dL (7.8-10.44); Carbon Dioxide 26 mmol/L (23-31); Chloride 105 mmol/L (98-107); Estimated GFR 90; Glucose 92 mg/dL (83-110); Potassium 4.2 mmol/L (3.5-5.1); Sodium 141 mmol/L (136-145)
[2023-04-25] MEDS: Mometasone 100 MCG/Formoterol 5 MCG 120 PUFF INHALER INH SCH ×2 (08:08→19:00)
[2023-04-25] MEDS: Pregabalin 75 MG CAP PO SCH ×3 (08:44→20:26)
[2023-04-25] MEDS: Fluticasone Propionate Nasal Spray 16 gm Bottle NASAL SCH (08:45)
[2023-04-25] MEDS: Potassium Chloride 20 MEQ TAB PO SCH ×2 (08:45→16:55)
[2023-04-25] MEDS: Losartan 25 MG TAB PO SCH (08:45)
[2023-04-25] MEDS: Hydrochlorothiazide 25 MG TAB PO SCH (08:45)
[2023-04-25] MEDS: Venlafaxine HCl XR 150 MG CAP PO SCH (08:45)
[2023-04-25] MEDS ORDERED: Regadenoson 0.4 MG/5 ML SYRINGE ONE (11:54)
[2023-04-25] MEDS: Carvedilol 25 MG TAB PO SCH ×2 (12:51→16:55)
[2023-04-25] MEDS: Acetaminophen 325 MG TAB PO PRN ×2 (12:53→20:26)
[2023-04-25] MEDS: Montelukast Sodium 10 mg Tablet PO SCH (20:26)
[2023-04-25] MEDS: Rosuvastatin 10 MG TAB PO SCH (20:26)
[2023-04-26] MEDS: Levothyroxine Sodium 25 MCG TAB PO SCH (06:01)
[2023-04-26] MEDS: Mometasone 100 MCG/Formoterol 5 MCG 120 PUFF INHALER INH SCH ×2 (06:45→18:28)
[2023-04-26] MEDS: Acetaminophen 325 MG TAB PO PRN ×2 (09:40→20:25)
[2023-04-26] MEDS: Hydrochlorothiazide 25 MG TAB PO SCH (09:40)
[2023-04-26] MEDS: Losartan 25 MG TAB PO SCH (09:41)
[2023-04-26] MEDS: Carvedilol 25 MG TAB PO SCH ×2 (09:42→16:09)
[2023-04-26] MEDS: Venlafaxine HCl XR 150 MG CAP PO SCH (09:42)
[2023-04-26] MEDS: Potassium Chloride 20 MEQ TAB PO SCH ×2 (09:42→16:09)
[2023-04-26] MEDS: Pregabalin 75 MG CAP PO SCH ×3 (09:42→20:18)
[2023-04-26] MEDS: Fluticasone Propionate Nasal Spray 16 gm Bottle NASAL SCH (09:43)
[2023-04-26] MEDS: Rosuvastatin 10 MG TAB PO SCH (20:18)
[2023-04-26] MEDS: Montelukast Sodium 10 mg Tablet PO SCH (20:18)
[2023-04-27] MEDS: Levothyroxine Sodium 25 MCG TAB PO SCH (04:55)
[2023-04-27] MEDS: Mometasone 100 MCG/Formoterol 5 MCG 120 PUFF INHALER INH SCH (07:02)
[2023-04-27 08:10] VITALS: BP 116/59; TEMP 97.6
[2023-04-27] MEDS: Venlafaxine HCl XR 150 MG CAP PO SCH (09:04)
[2023-04-27] MEDS: Losartan 25 MG TAB PO SCH (09:04)
[2023-04-27] MEDS: Pregabalin 75 MG CAP PO SCH (09:04)
[2023-04-27] MEDS: Carvedilol 25 MG TAB PO SCH (09:05)
[2023-04-27] MEDS: Hydrochlorothiazide 25 MG TAB PO SCH (09:05)
[2023-04-27] MEDS: Fluticasone Propionate Nasal Spray 16 gm Bottle NASAL SCH (09:06)
[2023-04-27] MEDS: Potassium Chloride 20 MEQ TAB PO SCH (09:06)
== END 2023-04-27 11:02 | disposition home or self-care (01) | DRG 312 ==
LOC: ERS 20:26 → 2SW 23:55 → OBSVTOIN 04-25 09:39
PROVIDERS: ADMIT Specialist; ATTEND Specialist
DX: R55 Syncope and collapse (principal); H01.009 Unspecified blepharitis unspecified eye, unspecified eyelid; J98.4 Other disorders of lung; M17.12 Unilateral primary osteoarthritis, left knee; K44.9 Diaphragmatic hernia without obstruction or gangrene; K21.9 Gastro-esophageal reflux disease without esophagitis; J45.909 Unspecified asthma, uncomplicated; E03.9 Hypothyroidism, unspecified; E87.6 Hypokalemia; I10 Essential (primary) hypertension; E78.5 Hyperlipidemia, unspecified; G47.30 Sleep apnea, unspecified; E66.9 Obesity, unspecified; D84.1 Defects in the complement system; Z96.651 Presence of right artificial knee joint; Z98.41 Cataract extraction status, right eye; Z98.42 Cataract extraction status, left eye; Z98.890 Other specified postprocedural states; Z90.89 Acquired absence of other organs; Z68.32 Body mass index [BMI] 32.0-32.9, adult; F41.1 Generalized anxiety disorder; Z90.710 Acquired absence of both cervix and uterus
CPT/HCPCS: 36415; 71045; 78452; 80048; 80053; 83735; 83880; 84443; 84484; 85025; 93005; 93017; 94760; A9500; J2785

== ENCOUNTER 2024-01-25 13:06 | Outpatient (CLI) | payer MEDICARE | END 2024-01-25 13:07 | disposition home or self-care (01) | LOC: BICMAMMO 13:06 | PROVIDERS: ATTEND Specialist | DX: Z12.31 Encounter for screening mammogram for malignant neoplasm of breast (principal); M81.0 Age-related osteoporosis without current pathological fracture; M85.852 Other specified disorders of bone density and structure, left thigh; Z80.3 Family history of malignant neoplasm of breast | CPT/HCPCS: 77063; 77067; 77080 ==

== ENCOUNTER 2024-09-18 12:58 | Outpatient (CLI) | payer MEDICARE | END 2024-09-18 12:59 | disposition home or self-care (01) | LOC: BICCT 12:58 | PROVIDERS: ATTEND Specialist | DX: M47.26 Other spondylosis with radiculopathy, lumbar region (principal); M48.061 Spinal stenosis, lumbar region without neurogenic claudication; M43.06 Spondylolysis, lumbar region; S22.089K Unspecified fracture of T11-T12 vertebra, subsequent encounter for fracture with nonunion; Z98.1 Arthrodesis status | CPT/HCPCS: 72131 ==

== ENCOUNTER 2025-05-13 15:15 | Outpatient (CLI) | payer MEDICARE | END 2025-05-13 15:16 | disposition home or self-care (01) | LOC: BICRAD 15:15 | PROVIDERS: ATTEND Specialist | DX: J45.998 Other asthma (principal); R06.00 Dyspnea, unspecified | CPT/HCPCS: 71046 ==

== ENCOUNTER 2025-07-15 13:55 | Outpatient (CLI) | payer MEDICARE | END 2025-07-15 13:56 | disposition home or self-care (01) | LOC: BICCT 13:55 | PROVIDERS: ATTEND Nurse Practitioner Family | DX: M54.14 Radiculopathy, thoracic region (principal); M54.16 Radiculopathy, lumbar region; M48.061 Spinal stenosis, lumbar region without neurogenic claudication; M48.07 Spinal stenosis, lumbosacral region; Z98.890 Other specified postprocedural states | CPT/HCPCS: 72128; 72131 ==